=== PATIENT | male | born 1960 | race Two or more races ===

== ENCOUNTER 2017-01-08 12:04 | Inpatient (IN) | payer MEDICARE, MEDICAID ==
[~2017-01-08] VITALS: Ht 167.6 cm; Wt 73.0 kg
[~2017-01-08 12:04] MED LIST: BENA40TA2 PO; BLOO-668 IN; METO25TA6 PO; VALS40TA4 PO
--- NOTE | 2017-01-08 12:12 | NUR ---
PT BIB SELF AMBULATORY COMPLAINED NAUSEA / VOMITING / ABD PAIN SINCE YESTERDAY. PLACED PT ON MONITOR. VSS. AWAITING MD ORDER
--- NOTE | 2017-01-08 12:20 | NUR ---
AT BEDSIDE FOR EVAL
[2017-01-08] MEDS ORDERED: LIDOCAINE 2% JEL UROJET 10 ML MM ONE (12:30)
[2017-01-08] MEDS ORDERED: ONDANSETRON HCL/PF 4 MG/2 ML VIAL IVP ONE (12:30)
[2017-01-08] MEDS ORDERED: MAG HYDROX/AL HYDROX/SIMETH 30 ML UDC PO ONE (12:30)
--- NOTE | 2017-01-08 12:30 | NUR ---
VIKKI #22 IV ACCESS. BLOOD SAMPLE COLLECTED SENT TO LAB
[2017-01-08] MEDS ORDERED: ONDANSETRON HCL/PF 4 MG/2 ML VIAL ONE (12:51)
[2017-01-08] MEDS ORDERED: LIDOCAINE VISCOUS 2% UD 15 ML UDC ONE (12:51)
[2017-01-08] MEDS ORDERED: MAG HYDROX/AL HYDROX/SIMETH 30 ML UDC ONE (12:51)
[2017-01-08 12:52] LABS: BASOPHILS # (AUTO) 0.2 /CMM (0.0-0.2); BASOPHILS % (AUTO) 2.4 % (0.0-2.0); EOSINOPHILS # (AUTO) 0.1 /CMM (0.0-0.7); HEMATOCRIT 43 % (39-51); HEMOGLOBIN 14.6 g/dL (13.5-17.5); LYMPHOCYTES # (AUTO) 1.6 /CMM (0.8-4.8); LYMPHOCYTES % (AUTO) 16.9 % (20.0-44.0); MEAN CORPUSCULAR HEMOGLOBIN 30 PG (26.0-33.0); MEAN CORPUSCULAR HGB CONC 34 g/dl (31.0-36.0); MEAN CORPUSCULAR VOLUME 90 fL (80-96); MONOCYTES # (AUTO) 0.6 /CMM (0.1-1.30); NEUTROPHILS # (AUTO) 6.7 /CMM (1.8-8.9); NEUTROPHILS % (AUTO) 73.7 % (43.0-81.0); PLATELET COUNT (AUTO) 278 /CMM (150-450); RDW COEFFICIENT OF VARIATION 12.8 (11.5-15.0); RED BLOOD CELL COUNT(AUTO) 4.82 MIL/uL (4.5-6.0); WHITE BLOOD COUNT (AUTO) 9.2 K/uL (4.3-11.0)
[2017-01-08] MEDS ORDERED: LIDOCAINE VISCOUS 2% UD 15 ML UDC MM ONE (13:00)
[2017-01-08 13:02] LABS: CALCIUM, SERUM 8.8 mg/dL (8.5-10.1); CREATININE 1.2 mg/dL (0.6-1.3); POTASSIUM 4.7 mmol/L (3.5-5.1)
[2017-01-08 13:06] LABS: APPEARANCE,URINE Clear (CLEAR); BILIRUBIN,URINE Negative (NEGATIVE); BLOOD, URINE Negative Ery/uL (NEGATIVE); COLOR,URINE Yellow (YELLOW); KETONES,URINE Negative (NEGATIVE); LEUKOCYTE ESTERASE ,URINE Negative (NEGATIVE); NITRITE, URINE Negative (NEGATIVE); PROTEIN,URINE Negative (NEGATIVE); UGLUCOSE Negative (NEGATIVE); UROBILINOGEN,URINE 0.2 EU/dL (0.2)
[2017-01-08 13:07] LABS: BILIRUBIN,DIRECT 0.1 mg/dL (0.0-0.2); BILIRUBIN,TOTAL 0.4 mg/dL (0.2-1.0); TOTAL PROTEIN, SERUM 7.8 g/dL (6.4-8.2)
[2017-01-08] MEDS ORDERED: IV NS 0.9% 1,000 ML ONE (13:19)
[2017-01-08] MEDS ORDERED: IV SET PRIMARY PUMP SET 1 EA INFUS.SET MC ONE ×2 (13:19→16:31)
[2017-01-08] MEDS ORDERED: IV NS 0.9% 1,000 ML BAG IV ONE (13:30)
[2017-01-08] MEDS ORDERED: IV NS 0.9% 250 ML IV ONE (13:48)
[2017-01-08] MEDS ORDERED: CT SWABBABLE VALVE TRANS SET 1 EA INFUS.SET MC ONE (13:48)
[2017-01-08] MEDS ORDERED: IOHEXOL-300 100 ML VIAL IV ONE (13:48)
[2017-01-08] MEDS ORDERED: SITA50TA PO (13:54)
[2017-01-08] MEDS ORDERED: METF850T2 PO (13:54)
[2017-01-08] MEDS ORDERED: LOVA20TA2 PO (13:54)
[2017-01-08] MEDS ORDERED: SUCR1TAB PO (13:54)
[2017-01-08] MEDS ORDERED: METO50TA3 PO (13:54)
[2017-01-08] MEDS ORDERED: HYDR25TA4 PO (13:54)
--- NOTE | 2017-01-08 14:44 | NUR ---
PANEL ON-CALL PAGED
--- NOTE | 2017-01-08 14:54 | NUR ---
BED 117.B1
--- NOTE | 2017-01-08 15:29 | NUR ---
GAVE REPORT TO MARGUERITE MERAFOREST PATHOLOGIST ADMITTING DR MAIN. ROOM 117-1
[2017-01-08 16:00] VITALS: BP 155/94
[2017-01-08] MEDS ORDERED: Z GUARD REMEDY 2 OZ OINT TP PRN (16:00)
[2017-01-08] MEDS ORDERED: MAG HYDROX/AL HYDROX/SIMETH 30 ML UDC PO PRN (16:00)
[2017-01-08] MEDS ORDERED: MAGNESIUM HYDROXIDE 30 ML UDC PO PRN (16:00)
[2017-01-08] MEDS ORDERED: HYDROCODONE/APAP 5/325MG 1 EACH TABLET PO PRN (16:00)
[2017-01-08] MEDS ORDERED: ZOLPIDEM TARTRATE 5 MG TABLET PO PRN (16:00)
--- NOTE | 2017-01-08 16:00 | NUR ---
RN INITIAL NOTES RECEIVED REPORT FROM ER, RECEIVED PT IN BED, AWAKE, ABLE TO MAKE NEEDS KNOWN, UKRAINIAN SPEAKING, PT IS ON TELE MONITOR SHOWING SR @ 75BPM, NO C/O CHEST PAIN OR DISCOMFORT AT THIS TIME, PT IS ON RA, SATING WELL, NO S/S OF RESP. DISTRESS OR SOB NOTED AT THIS TIME, SKIN IS INTACT, NO PHOTOS REQUIRED, PT HAS L HAND # 22G, SL, LFA # 18G, SL, C/D/I/PATENT, FLUSHING WELL, NO S/S OF INFECTION/ INFILTRATION NOTED, ALL SAFETY MEASURES IN PLACE AT ALL TIMES, CALL LIGHT WITHIN EASY REACH, WILL MONITOR PT CLOSELY
[2017-01-08] MEDS: METOPROLOL TARTRATE 50 MG TABLET PO SCH (16:39)
[2017-01-08] MEDS: METFORMIN 850 MG TABLET PO SCH (16:39)
[2017-01-08] MEDS: SUCRALFATE 1 G TABLET PO SCH (16:39)
[2017-01-08] MEDS ORDERED: CEFTRIAXONE 1 G in IV D5W 50 ML IV SCH (17:00)
[2017-01-08] MEDS: ONDANSETRON HCL/PF 4 MG/2 ML VIAL IVP PRN ×2 (17:55→23:51)
[2017-01-08 18:31] LABS: OSMOLALITY,URINE 326 mOS/kg (340-1090)
[2017-01-08 18:38] LABS: URINE SODIUM, RANDOM 39 mmol/l (40-220)
--- NOTE | 2017-01-08 18:54 | NUR ---
RN CLOSING NOTES PT REMAINED STABLE DURING SHIFT, ALL MD ORDERS CARRIED OUT, ALL MEDICATIONS GIVEN, PT WAS KEPT CLEAN AND DRY, IV REMAINS INTACT, ALL SAFETY MEASURES IN PLACE AT ALL TIMES, CALL LIGHT WITHIN EASY REACH, WILL GIVE REPORT TO PM RN FOR ALEXIS
--- NOTE | 2017-01-08 19:30 | NUR ---
CORPORATE STRATEGIST INITIAL NOTE RECEIVED PT IN BED. A/O X4 HONG KONGER SPEAKING AND ABLE TO MAKE NEEDS KNOWN. ON ROOM AIR AND SATING WELL. TELE-SINUS RHYTHM 60'S. ON FLUID RESTRICTION 900ML. IV L HAND #22 AND LFA #18 BOTH CLEAN, DRY, INTACT, PATENT AND FLUSHING WELL. CALL LIGHT WITHIN EASY REACH AT ALL TIMES. WILL CONTINUE TO MONITOR.
[2017-01-08 20:00] VITALS: BP 144/80
[2017-01-08] MEDS ORDERED: ATORVASTATIN 10 MG TABLET PO SCH (22:00)
[2017-01-08] MEDS: ACETAMINOPHEN 325 MG TABLET PO PRN (22:10)
[2017-01-09] VITALS: BP 135/75
[2017-01-09 04:00] VITALS: BP 140/81
[2017-01-09] MEDS: ACETAMINOPHEN 325 MG TABLET PO PRN (04:12)
--- NOTE | 2017-01-09 05:43 | NUR ---
RN NOTES: PT WITH HX OF DM, AND MENTIONED TO PRIMARY RN THAT HIS SUGAR HAS NOT BEEN CHECKED YET. NO ORDERS FOR ACCUCHECKS NOTED YET. RELAYED TO [facility] TURN OPERATOR HAIR VAZQUEZ WITH ORDERS TO PUT PT ON MILD SLIDING SCALE ACHS. NOTED AND CARRIED OUT. PRIMARY RN AWARE.
[2017-01-09] MEDS ORDERED: INSULIN REGULAR, HUMAN 100 UNIT/ML 3 ML VIAL SQ PRN (06:00)
[2017-01-09] MEDS ORDERED: DEXTROSE 50%-WATER 50 ML DISP.SYRIN IV PRN (06:00)
[2017-01-09] MEDS: BLOOD SUGAR DIAGNOSTIC 1 EACH STRIP IN SCH ×2 (06:32→11:41)
[2017-01-09] MEDS: ONDANSETRON HCL/PF 4 MG/2 ML VIAL IVP PRN ×2 (06:32→11:35)
[2017-01-09 06:47] LABS: BASOPHILS % (AUTO) 0.3 % (0.0-2.0); EOSINOPHILS # (AUTO) 0.1 /CMM (0.0-0.7); EOSINOPHILS % (AUTO) 1.8 % (0.0-6.0); HEMATOCRIT 40 % (39-51); HEMOGLOBIN 13.9 g/dL (13.5-17.5); LYMPHOCYTES % (AUTO) 30.1 % (20.0-44.0); MEAN CORPUSCULAR HEMOGLOBIN 31 PG (26.0-33.0); MEAN CORPUSCULAR HGB CONC 35 g/dl (31.0-36.0); MEAN CORPUSCULAR VOLUME 89 fL (80-96); MONOCYTES # (AUTO) 0.6 /CMM (0.1-1.30); MONOCYTES % (AUTO) 9.1 % (2.0-12.0); NEUTROPHILS # (AUTO) 3.9 /CMM (1.8-8.9); NEUTROPHILS % (AUTO) 58.7 % (43.0-81.0); PLATELET COUNT (AUTO) 261 /CMM (150-450); RED BLOOD CELL COUNT(AUTO) 4.48 MIL/uL (4.5-6.0); WHITE BLOOD COUNT (AUTO) 6.6 K/uL (4.3-11.0)
--- NOTE | 2017-01-09 06:59 | NUR ---
RADIOACTIVE WASTE DISPOSAL DISPATCHER CLOSING NOTE PT REMAINED STABLE DURING SHIFT. C/O NAUSEA, MEDICATION GIVEN AND WELL TOLERATED. BLOOD SUGAR CHECKED 131MG/DL AND PT REFUSED INSULIN COVERAGE STATING 'I HAVE NAUSEA AND WHAT IF I CANT EAT BREAKFAST? MY SUGAR IS GOING TO DROP' Addendum: 01/09/17 at 0715 by SYDNI PHAM RN RISKS AND BENEFITS EXPLAINED X'3. PT STILL REFUSED. WILL ENDORSE TO NEXT SHIFT FOR ALEXIS.
[2017-01-09 07:04] LABS: CALCIUM, SERUM 8.6 mg/dL (8.5-10.1); CREATININE 1.2 mg/dL (0.6-1.3); MAGNESIUM 1.3 mg/dL (1.8-2.4); PHOSPHORUS 4.1 mg/dL (2.5-4.9); POTASSIUM 4.3 mmol/L (3.5-5.1)
--- NOTE | 2017-01-09 07:15 | NUR ---
RN INITIAL NOTE PT RECEIVED IN BED SLEEPING, NO S/S OF PAIN OR DISCOMFORT. NO S/S OF RESPIRATORY DISTRESS OR SOB. SATING WELL ON ROOM AIR. SINUS RHYTHM ON TELE MONITOR. SKIN IS WARM AND DRY TO TOUCH. LEFT HAND IV 22G, AND LFA IV 18G, FLUSHED AND PATENT. DRESSING C/D/I. SAFETY MEASURES IMPLEMENTED. BED IN LOCKED, LOW POSITION, TWO SIDE RAILS UP. CALL LIGHT AND BELONGINGS WITHIN REACH. WILL CONTINUE TO MONITOR.
[2017-01-09 08:00] VITALS: BP_SYST 127; BP_SYST 139; BP_DIAS 69; BP_DIAS 74
[2017-01-09 08:12] LABS: ANISOCYTOSIS 1+; PLATELET ESTIMATE DECREASED
[2017-01-09] MEDS: SUCRALFATE 1 G TABLET PO SCH ×2 (08:40→12:01)
[2017-01-09 08:41] VITALS: BP 139/74
[2017-01-09] MEDS: METOPROLOL TARTRATE 50 MG TABLET PO SCH (08:41)
[2017-01-09] MEDS: METFORMIN 850 MG TABLET PO SCH (08:41)
[2017-01-09] MEDS ORDERED: LINAGLIPTIN 5 MG TABLET PO SCH (09:00)
[2017-01-09] MEDS: Magnesium 1GM/D5W 100ML PREMIX 100 ML IV SCH ×2 (11:49→12:52)
--- NOTE | 2017-01-09 14:45 | NUR ---
RN CLOSING NOTE PT DISCHARGED HOME. REMOVED TWO IV'S. PICKED UP BY [facility].
== END 2017-01-09 14:22 | disposition home or self-care (01) | DRG 690 ==
LOC: EDUNIT# 12:04 → ER 12:06 → TELE1 15:18 → MEDSG1 01-09 10:55
PROVIDERS: ADMIT Family Medicine; ATTEND Family Medicine
DX: N30.90 Cystitis, unspecified without hematuria (principal); E87.1 Hypo-osmolality and hyponatremia; I12.9 Hypertensive chronic kidney disease with stage 1 through stage 4 chronic kidney disease, or unspecified chronic kidney disease; N18.9 Chronic kidney disease, unspecified; E11.22 Type 2 diabetes mellitus with diabetic chronic kidney disease; E78.5 Hyperlipidemia, unspecified; Z79.84 Long term (current) use of oral hypoglycemic drugs; Z83.3 Family history of diabetes mellitus; T50.2X5A Adverse effect of carbonic-anhydrase inhibitors, benzothiadiazides and other diuretics, initial encounter; Y92.009 Unspecified place in unspecified non-institutional (private) residence as the place of occurrence of the external cause; K29.70 Gastritis, unspecified, without bleeding; E86.9 Volume depletion, unspecified
CPT/HCPCS: 36415; 80048-TC; 80061-TC; 80076-TC; 81000-TC; 82962-TC; 83690-TC; 83735-TC; 83935-TC; 84100-TC; 84300-TC; 85025-TC; 87081-TC; A4606; J0696; J1815; J2405; J3475; J7030; J7050; J7060; Q9967; Z7610

== ENCOUNTER 2017-06-04 18:22 | Emergency (ER) | payer MEDICARE, MEDICAID ==
[~2017-06-04] VITALS: Ht 167.6 cm; Wt 72.6 kg
[~2017-06-04 18:22] MED LIST changes: -BENA40TA2 PO; -BLOO-668 IN; +HYDR25TA4 PO; +LEVO500T15 PO; +LOVA20TA2 PO; +METF850T2 PO; -METO25TA6 PO; +METO50TA3 PO; +SITA50TA PO; +SUCR1TAB PO; -VALS40TA4 PO
[2017-06-04] MEDS ORDERED: ONDANSETRON HCL/PF 4 MG/2 ML VIAL ONE ×2 (18:49→20:01)
[2017-06-04] MEDS ORDERED: ONDANSETRON HCL/PF - ER 4 MG/2 ML VIAL IV ONE ×2 (19:00→20:00)
[2017-06-04] MEDS ORDERED: IV NS 0.9% 500 ML BAG IV ONE (19:00)
--- NOTE | 2017-06-04 19:00 | NUR ---
PT CAME IN FOR NAUSEA AND VOMITING X 3 DAYS ; LEFT FLANK PAIN. SEEN BY SYSTEMS ADMIN FOR EVAL. VSS. SAFETY AND COMFORT MEASURES PROVIDED. WILL MONITOR.
[2017-06-04 19:03] LABS: BASOPHILS # (AUTO) 0.1 /CMM (0.0-0.2); BASOPHILS % (AUTO) 0.8 % (0.0-2.0); EOSINOPHILS # (AUTO) 0.2 /CMM (0.0-0.7); EOSINOPHILS % (AUTO) 2.5 % (0.0-6.0); HEMATOCRIT 44 % (39-51); HEMOGLOBIN 15.2 g/dL (13.5-17.5); LYMPHOCYTES # (AUTO) 2.4 /CMM (0.8-4.8); LYMPHOCYTES % (AUTO) 29.2 % (20.0-44.0); MEAN CORPUSCULAR HEMOGLOBIN 32 PG (26.0-33.0); MEAN CORPUSCULAR HGB CONC 34 g/dl (31.0-36.0); MEAN CORPUSCULAR VOLUME 93 fL (80-96); MONOCYTES # (AUTO) 0.6 /CMM (0.1-1.30); MONOCYTES % (AUTO) 7.3 % (2.0-12.0); NEUTROPHILS # (AUTO) 4.9 /CMM (1.8-8.9); NEUTROPHILS % (AUTO) 60.2 % (43.0-81.0); PLATELET COUNT (AUTO) 268 /CMM (150-450); RDW COEFFICIENT OF VARIATION 11.9 (11.5-15.0); RED BLOOD CELL COUNT(AUTO) 4.78 MIL/uL (4.5-6.0); WHITE BLOOD COUNT (AUTO) 8.3 K/uL (4.3-11.0)
--- NOTE | 2017-06-04 19:10 | NUR ---
LUMBER CHAIN OFFBEARER AT BEDSIDE
[2017-06-04 19:18] LABS: INR 0.93 (0.87-1.13); PROTHROMBIN TIME 9.7 SECS (9.5-12.7)
[2017-06-04 19:19] LABS: ALANINE AMINOTRANSFERASE 21 U/L (12-78); ALKALINE PHOSPHATASE 74 U/L (46-116); ASPARTATE AMINOTRANSFERASE 20 U/L (15-37); BILIRUBIN,DIRECT 0.1 mg/dL (0.0-0.2); BILIRUBIN,TOTAL 0.3 mg/dL (0.2-1.0); CALCIUM, SERUM 8.8 mg/dL (8.5-10.1); CARBON DIOXIDE 26 mmol/L (21-32); CHLORIDE 99 mmol/L (98-107); CREATININE 1.1 mg/dL (0.6-1.3); GLUCOSE 148 mg/dL (74-106); POTASSIUM 3.8 mmol/L (3.5-5.1); SODIUM SERUM 136 mmol/L (136-145); TOTAL PROTEIN, SERUM 7.9 g/dL (6.4-8.2); UREA NITROGEN, BLOOD 16 mg/dL (7-18)
[2017-06-04 19:21] LABS: TROPONIN I < 0.017 ng/mL (0.00-0.056)
[2017-06-04 20:50] LABS: APPEARANCE,URINE Clear (CLEAR); BILIRUBIN,URINE Negative (NEGATIVE); BLOOD, URINE Negative Ery/uL (NEGATIVE); COLOR,URINE Yellow (YELLOW); KETONES,URINE Negative (NEGATIVE); LEUKOCYTE ESTERASE ,URINE Negative (NEGATIVE); NITRITE, URINE Negative (NEGATIVE); PH,URINE 6.5 (5.0-8.0); PROTEIN,URINE Negative (NEGATIVE); UGLUCOSE Negative (NEGATIVE); UROBILINOGEN,URINE 0.2 EU/dL (0.2)
[2017-06-04 21:09] VITALS: BP 120/80
--- NOTE | 2017-06-04 21:09 | NUR ---
Patient discharged to home in stable condition. Written and verbal after care instructions given. Patient verbalizes understanding of instruction.
== END 2017-06-04 21:10 | disposition home or self-care (01) ==
LOC: ER 18:23
DX: R11.2 Nausea with vomiting, unspecified (principal); E11.9 Type 2 diabetes mellitus without complications; I10 Essential (primary) hypertension; N28.9 Disorder of kidney and ureter, unspecified; R07.89 Other chest pain; E78.00 Pure hypercholesterolemia, unspecified
CPT/HCPCS: 36415; 71010; 80048; 80076; 81001; 84484; 85025; 85730; 93005; 96361; 96374; 96376; 99285; A4606; J2405 ×4; J7040; 81000-TC; Z7610

== ENCOUNTER 2017-10-23 22:40 | Inpatient (IN) | payer MEDICARE, MEDICAID ==
[~2017-10-23] VITALS: Ht 170.2 cm; Wt 72.6 kg
[~2017-10-23 22:40] MED LIST changes: -LEVO500T15 PO; +LEVO500T75 PO; +METO50TA16 PO; -METO50TA3 PO
--- NOTE | 2017-10-23 22:55 | NUR ---
MD LORRI CEVALLOS EVAL.
--- NOTE | 2017-10-23 22:55 | NUR ---
BB SELF FROM HOME C/O "BEEN VOMITING SINCE THIS AFTERNOON AND HAVE BURNING EPIGASTRIC PAIN 5". PT ADMITS TO DRINKING 6 BOTTLES OF BEER X2 DAYS AGO AND "A FEW DRINKS" YESTERDAY. PT IS AAOX4. PAIN IS NON RADIATING. PT ACTIVELY VOMITTING IN ROOM. VOMIT IS CLEAR IN COLOR. RESP EVEN AND UNLABORED. NO S/S OF ACUTE DISTRESS NOTED. PT AMBULATED TO ER BED 3 WITH STEADY GAIT. SKIN WARM AND WNL. AWAITING MD TY.
[2017-10-23] MEDS ORDERED: MAG HYDROX/AL HYDROX/SIMETH 30 ML UDC PO ONE (23:00)
[2017-10-23] MEDS ORDERED: IV NS 0.9% 1,000 ML BAG IV ONE (23:00)
[2017-10-23] MEDS ORDERED: ONDANSETRON HCL/PF 4 MG/2 ML VIAL IVP ONE (23:00)
[2017-10-23] MEDS ORDERED: FAMOTIDINE/PF INJ 20 MG/2 ML VIAL IV ONE ×2 (23:00→23:12)
[2017-10-23] MEDS ORDERED: MAG HYDROX/AL HYDROX/SIMETH 30 ML UDC ONE (23:11)
[2017-10-23] MEDS ORDERED: ONDANSETRON HCL/PF 4 MG/2 ML VIAL ONE (23:12)
--- NOTE | 2017-10-23 23:15 | NUR ---
PHLEBOTOMY BEDSIDE FOR BLOOD DRAW.
[2017-10-23 23:49] LABS: BASOPHILS % (AUTO) 0.2 % (0.0-2.0); EOSINOPHILS % (AUTO) 0.4 % (0.0-6.0); HEMATOCRIT 41 % (39-51); HEMOGLOBIN 14.7 g/dL (13.5-17.5); LYMPHOCYTES % (AUTO) 9.5 % (20.0-44.0); MEAN CORPUSCULAR HEMOGLOBIN 34 PG (26.0-33.0); MEAN CORPUSCULAR HGB CONC 36 g/dl (31.0-36.0); MEAN CORPUSCULAR VOLUME 94 fL (80-96); MONOCYTES # (AUTO) 0.5 /CMM (0.1-1.30); MONOCYTES % (AUTO) 4.3 % (2.0-12.0); NEUTROPHILS # (AUTO) 9.3 /CMM (1.8-8.9); NEUTROPHILS % (AUTO) 85.6 % (43.0-81.0); PLATELET COUNT (AUTO) 234 /CMM (150-450); RDW COEFFICIENT OF VARIATION 12.8 (11.5-15.0); RED BLOOD CELL COUNT(AUTO) 4.36 MIL/uL (4.5-6.0); WHITE BLOOD COUNT (AUTO) 10.9 K/uL (4.3-11.0)
[2017-10-24] LABS: CALCIUM, SERUM 9.2 mg/dL (8.5-10.1); CARBON DIOXIDE 25 mmol/L (21-32); CHLORIDE 97 mmol/L (98-107); CREATININE 1.1 mg/dL (0.6-1.3); GLUCOSE 254 mg/dL (74-106); POTASSIUM 3.8 mmol/L (3.5-5.1); SODIUM SERUM 136 mmol/L (136-145); UREA NITROGEN, BLOOD 9 mg/dL (7-18)
[2017-10-24 00:05] LABS: ALANINE AMINOTRANSFERASE 29 U/L (12-78); ALBUMIN 4.2 g/dL (3.4-5.0); ALKALINE PHOSPHATASE 72 U/L (46-116); ASPARTATE AMINOTRANSFERASE 13 U/L (15-37); BILIRUBIN,DIRECT 0.1 mg/dL (0.0-0.2); BILIRUBIN,TOTAL 0.4 mg/dL (0.2-1.0); LIPASE 1211 U/L (73-393); TOTAL PROTEIN, SERUM 8.3 g/dL (6.4-8.2)
[2017-10-24 00:08] LABS: TROPONIN I < 0.017 ng/mL (0.00-0.056)
--- NOTE | 2017-10-24 00:15 | NUR ---
Patient is resting comfortably in bed with eyes closed. Easily aroused. VSS
--- NOTE | 2017-10-24 00:34 | NUR ---
PAGED DR PECK PHYSICIAN AIDE PANEL
[2017-10-24] MEDS ORDERED: MAGNESIUM HYDROXIDE 30 ML UDC PO PRN (01:00)
[2017-10-24] MEDS ORDERED: MAG HYDROX/AL HYDROX/SIMETH 30 ML UDC PO PRN (01:00)
[2017-10-24] MEDS ORDERED: Z GUARD REMEDY 2 OZ OINT TP PRN (01:00)
[2017-10-24] MEDS ORDERED: ZOLPIDEM TARTRATE 5 MG TABLET PO PRN (01:00)
[2017-10-24] MEDS ORDERED: MORPHINE SULFATE INJ 2 MG/ML DISP.SYRIN IV PRN (01:00)
--- NOTE | 2017-10-24 01:23 | NUR ---
GAVE REPORT TO ISHA MEDINA FOR ALEXIS. EMT BEDSIDE TO TRANSPORT PT. VSS AND NO S/S OF ACUTE DISTRESS NOTED
[2017-10-24 02:00] VITALS: BP 136/81
[2017-10-24] MEDS ORDERED: ACETAMINOPHEN 325 MG TABLET ONE (02:05)
[2017-10-24] MEDS ORDERED: ONDANSETRON HCL/PF 4 MG/2 ML VIAL ONE (03:04)
[2017-10-24] MEDS: IV NS 0.9% 1,000 ML IV PRN ×3 (03:23→17:23)
[2017-10-24] MEDS: ONDANSETRON HCL/PF 4 MG/2 ML VIAL IVP PRN ×4 (03:25→23:46)
[2017-10-24] MEDS: MORPHINE SULFATE INJ 4 MG/ML DISP.SYRIN ONE ×2 (03:25→03:29)
--- NOTE | 2017-10-24 06:55 | NUR ---
RN NOTES Routine admission done. Skin assessment done, no skin breakdown noted. All needs attended. Will continue to monitor.
--- NOTE | 2017-10-24 06:55 | NUR ---
CONFERENCE SERVICES DIRECTOR NOTES 01:30 Admitted patient to the unit in no apparent distress. No respiratory distress noted. Skin warm and dry to touch. Patient is alert and oriented x4, Danish speaking. Translation service line used during admission interview. Patient c/o 5/10 abdominAL pain, pain medication given as ordered.C/o nausea, Zofran given as ordered. Patient kept NPO. Explained patient treatment plan, verbalized understanding.
[2017-10-24 08:00] VITALS: BP 136/73
--- NOTE | 2017-10-24 08:00 | NUR ---
RN NOTES RECEIVED PATIENT IN THE BED LYING. PATIENT A/O X3, TURKMEN SPEAKER, IV LINE ON LEFT FOREARM INFUSING NS AT 150 ML/HR, PATIENT C/O NAUSEA, HOB KEEP ELEVATED, V/S TAKEN STABLE, PATIENT USING URINAL, NEEDS ATTENDED AND ANTICIPATED, PATIENT HAS NO C/O PERSPIRATORY DISTRESS. CALL LIGHT WITHIN TO REACH, CONTINUED MONITORING.
[2017-10-24] MEDS ORDERED: METF500T4 PO (08:56)
[2017-10-24 09:00] VITALS: BP 136/73
--- NOTE | 2017-10-24 10:05 | NUR ---
RN NOTES ADMINISTERED ZOFRAN 4 MG/ML IV PUSH FOR NAUSEA AND VOMITING X2, CONTINUED MONITORING.
[2017-10-24] MEDS ORDERED: MORPHINE SULFATE INJ 4 MG/ML DISP.SYRIN IV PRN (10:30)
--- NOTE | 2017-10-24 10:34 | NUR ---
RN NOTES ADMINISTERED MORPHINE SULFATE 2 MF/ML IV PUSH PER PATIENT REQUEST 06/03 GENERALIZED PAIN, V/S TAKEN HC=128/73, P-88, CALL LIGHT WITHIN TO REACH, SAFETY PRECAUTION MAINTAINED ALL THE TIME.
[2017-10-24] MEDS: HYDROMORPHONE INJ 0.5 MG/0.5 ML SYRINGE IV PRN ×2 (14:52→22:51)
--- NOTE | 2017-10-24 14:52 | NUR ---
RN NOTES ADMINISTERED DILAUDID 0.25 MG/ML IV PUSH PER PATIENT REQUEST GENERALIZED PAIN 04/02, CALL LIGHT WITHIN TO REACH, INFUSING NS AT 150ML/HR, CALL LIGHT WITHIN TO REACH, SAFETY PRECAUTION MAINTAINED ALL THE TIME.
[2017-10-24 16:00] VITALS: BP 159/75
--- NOTE | 2017-10-24 17:23 | NUR ---
RN NOTES ADMINISTERED ZOFRAN 4 MG /ML IV PUSH FOR NAUSEA AND VOMITING, INFUSING NS AT 150 MG/ML PER HR, CALL LIGHT WITHIN TO REACH, CONTINUED MONITORING.
[2017-10-24] MEDS: ACETAMINOPHEN 325 MG TABLET PO PRN (17:42)
--- NOTE | 2017-10-24 17:43 | NUR ---
RN NOTES ADMINISTERED TYLENOL 650 MG PO PRN FOR HEADACHE, CONTINUED MONITORING.
[2017-10-24] MEDS ORDERED: DEXTROSE 50%-WATER 50 ML DISP.SYRIN IV PRN (18:30)
[2017-10-24] MEDS ORDERED: hydrALAZINE HCL 25 MG TABLET PO PRN (19:00)
--- NOTE | 2017-10-24 19:00 | NUR ---
RN NOTES BS-212 MG/DL, MEDICATION WERE ADMINISTERED FOR HEADACHE EFFECTIVE AND NAUSEA, RESTING IN THE BED, CALL LIGHT WITHIN TO REACH, SAFETY PRECAUTION MAINTAINED ALL THE TIME. ENDORSED ONCOMING NURSE FOR ALEXIS.
[2017-10-24] MEDS: BLOOD SUGAR DIAGNOSTIC 1 EACH STRIP IN SCH ×2 (19:37→22:15)
--- NOTE | 2017-10-24 20:00 | NUR ---
MS AIRPORT SHUTTLE DRIVER INITIAL NOTES RECEIVED PT IN BED RESTING WITH EYES CLOSES BY AROUSE TO TOUCH. NO SIGNS OF ANY DISCOMFORT OR ANY N/V NOTED. STILL ON IVF OF NS AT 150ML/HR INFUSING ON HIS RIGHT FOREARM PATENT AND INTACT. SKIN WARM AND DRY TO TOUCH. CROATIAN SPEAKING ONLY . KEPT HIM WARM AND COMFORTABLE AT ALL TIMES PLACE CALL LIGHT AT REACH. WILL CONTINUE TO MONITOR.
[2017-10-24 20:07] VITALS: BP 122/72
[2017-10-24] MEDS: INSULIN REGULAR, HUMAN 100 UNIT/ML 3 ML VIAL SQ PRN (22:18)
--- NOTE | 2017-10-24 22:37 | NUR ---
serging machine operator automatic/notes /clarification ordered spoke to dr Chen regarding the accu-check coverage , he ordered to just do the accu check but no coverages and monitoring the pt. Blood sugar 202, no signs of hyper glycemia noted.
--- NOTE | 2017-10-24 22:55 | NUR ---
MS SHIPPING/RECEIVING MANAGER NOTES/PAIN GT C/O ABDOMINAL PAIN , DILAUDID 0.25 IVP ADMINISTERED BY ANOTHER NURSE. PT AWARE OF POSSIBLE SIDE EFFECT. SAFETY PRECAUTION IMPLEMENTED AND OBSERVED. PLACE CALL LIGHT AT REACH.
--- NOTE | 2017-10-25 | NUR ---
PHYSICAL MEDICINE TEACHER/NOTES RE-ASSESS PT FOR HIS PAIN, SUBSIDE BUT HE FEEL NAUSEATED, ZOFRAN GIVEN DELORES IVP ORDERED. WILL CONTINUE MONITORING. PT STILL ON IVF OF NS AT 150ML/HR. PLACE CALL LIGHT AT REACH.
[2017-10-25] MEDS: IV NS 0.9% 1,000 ML IV PRN ×3 (00:22→20:11)
[2017-10-25] MEDS: BLOOD SUGAR DIAGNOSTIC 1 EACH STRIP IN SCH ×6 (02:15→21:59)
--- NOTE | 2017-10-25 02:18 | NUR ---
MS DIRECTOR OF OFFICIATING NOTES BLOOD SUGAR CHECKED DONE 170 , NO INSULIN COVERAGES AT THIS TIME ORDERED. NO SIGNS OF ANY HYPO/HYPER GLYCEMIA NOTED. KEPT HIM WARM AND COMFORTABLE AT ALL TIMES. IVF INFUSING WELL.
[2017-10-25] MEDS: HYDROMORPHONE INJ 0.5 MG/0.5 ML SYRINGE IV PRN ×2 (05:29→19:10)
--- NOTE | 2017-10-25 05:34 | NUR ---
ms/rn notes pain reported at 7/10 in abdomen, iv dilaudid .25ml given, monitoring for effectiveness.
[2017-10-25] MEDS: ONDANSETRON HCL/PF 4 MG/2 ML VIAL IVP PRN ×3 (05:56→19:10)
--- NOTE | 2017-10-25 05:56 | NUR ---
ms/rn notes reported nausea, administer iv zofran for relief.
--- NOTE | 2017-10-25 07:05 | NUR ---
MS TELLER VAULT CLOSING NOTES PT RESTING NOW AFTER PAIN MEDICATION GIVEN AND ZOFRAN WELL. STILL ON IVF NS AT 150 ML/HR STILL INFUSING , NO REDNESS NOTED. SLEPT WELL AND STABLE DELORES THE NIGHT. ALL DUE MEDS GIVEN AND ALL NEEDS MET. STILL NPO ORDERED. ON INSULIN COVERAGE FOR HIS BLOOD SUGAR CHECK. DONE 189 NO INSULIN COVERAGE ORDERED. NO SIGNS OF HYPO/HYPER GLYCEMIA NOTED. KEPT HIM WARM AND COMFORTABLE AT ALL TIMES. PLACE CALL LIGHT AT REACH. ENDORSE TO AM NURSE FOR CONTINUITY OF CARE.
--- NOTE | 2017-10-25 07:30 | NUR ---
MS RN OPENING NOTES RECEIVED PATIENT IN BED HOB ELEVATED, ALERT ORIENTED X4. NO ACUTE DISTRESS NOTED. NO SOB NOTED. BREATHING UNLABORED. DENIED ANY PAIN. IV ACCESS INTACT AND PATENT. NO REDNESS OR SWELLING NOTED. SAFETY MEASURES IN PLACE. CALL LIGHT PLACED WITHIN REACH. WILL CONTINUE TO MONITOR ACCORDINGLY.
[2017-10-25 07:55] LABS: BASOPHILS % (AUTO) 0.4 % (0.0-2.0); EOSINOPHILS % (AUTO) 0.3 % (0.0-6.0); HEMATOCRIT 43 % (39-51); HEMOGLOBIN 15.2 g/dL (13.5-17.5); LYMPHOCYTES # (AUTO) 1.6 /CMM (0.8-4.8); LYMPHOCYTES % (AUTO) 21.8 % (20.0-44.0); MEAN CORPUSCULAR HEMOGLOBIN 34 PG (26.0-33.0); MEAN CORPUSCULAR HGB CONC 35 g/dl (31.0-36.0); MEAN CORPUSCULAR VOLUME 95 fL (80-96); MONOCYTES # (AUTO) 0.4 /CMM (0.1-1.30); MONOCYTES % (AUTO) 6.1 % (2.0-12.0); NEUTROPHILS # (AUTO) 5.1 /CMM (1.8-8.9); NEUTROPHILS % (AUTO) 71.4 % (43.0-81.0); PLATELET COUNT (AUTO) 233 /CMM (150-450); RDW COEFFICIENT OF VARIATION 13.3 (11.5-15.0); RED BLOOD CELL COUNT(AUTO) 4.53 MIL/uL (4.5-6.0); WHITE BLOOD COUNT (AUTO) 7.2 K/uL (4.3-11.0)
[2017-10-25 08:00] VITALS: BP 136/72
[2017-10-25 09:02] LABS: BILIRUBIN,TOTAL 0.5 mg/dL (0.2-1.0); CALCIUM, SERUM 8.8 mg/dL (8.5-10.1); MAGNESIUM 1.6 mg/dL (1.8-2.4); PHOSPHORUS 2.7 mg/dL (2.5-4.9); POTASSIUM 3.5 mmol/L (3.5-5.1); TOTAL PROTEIN, SERUM 8.3 g/dL (6.4-8.2)
[2017-10-25] MEDS: SUCRALFATE 1 G TABLET PO SCH ×2 (10:20→19:09)
[2017-10-25] MEDS: HYDROCHLOROTHIAZIDE 25 MG TABLET PO SCH (10:21)
[2017-10-25] MEDS: METOPROLOL TARTRATE 50 MG TABLET PO SCH ×2 (10:22→19:10)
[2017-10-25] MEDS: Magnesium 1GM/D5W 100ML PREMIX 100 ML IV SCH ×2 (10:26→12:10)
[2017-10-25] MEDS: INSULIN REGULAR, HUMAN 100 UNIT/ML 3 ML VIAL SQ PRN ×2 (13:21→22:02)
[2017-10-25] MEDS: ACETAMINOPHEN 325 MG TABLET PO PRN (13:21)
--- NOTE | 2017-10-25 13:21 | NUR ---
RN NOTES ADMINISTERED TYLENOL 650 MG PO PRN FOR HEADACHE, BS-300 MG/DL COVERAGE GIVEN, INFUSING MG 100ML/HR INTACT, CALL LIGHT WITHIN TO REACH, SAFETY PRECAUTION MAINTAINED ALL THE TIME.
[2017-10-25 16:00] VITALS: BP 133/73
--- NOTE | 2017-10-25 19:10 | NUR ---
rn notes administered Zofran 4 mg /ml iv push for nausea, and Dilaudid 0.25 mg/ml iv push per patient request, v/s taken bp- 133//73, p-71, also administered scheduled medication, patient using bathroom, no acute respiratory distress, needs attended a and anticipated, call light within to reach, safety precaution maintained all the time. endorsed oncoming nurse for philip.
--- NOTE | 2017-10-25 19:35 | NUR ---
MS RN OPENING NOTES RECEIVED PATIENT REGTING, AWAKE IN BED. HOB ELEVATED. A & O X 4. NO ACUTE DISTRESS NOTED. NO C/O ABD PAIN OR SOB NOTED. BREATHING UNLABORED, @ RA. DENIED N/V @ THIS TIME. IV ACCESS TO LAC INTACT AND PATENT, RUNNING WITH NS @ 150 ML/HR. NO REDNESS OR SWELLING NOTED. SAFETY MEASURES IN PLACE. BED IN LOW LOCKED POSITION. CALL LIGHT PLACED WITHIN REACH. WILL CONTINUE TO MONITOR FOR ALEXIS.
[2017-10-25 20:00] VITALS: BP 155/81
[2017-10-26] MEDS: BLOOD SUGAR DIAGNOSTIC 1 EACH STRIP IN SCH ×5 (01:33→16:53)
[2017-10-26] MEDS: INSULIN REGULAR, HUMAN 100 UNIT/ML 3 ML VIAL SQ PRN ×5 (01:33→17:31)
--- NOTE | 2017-10-26 01:33 | NUR ---
REFUSED INSULIN PER SLIDING SCALE BS WAS CHECKED, 176 MG/DL. PT REFUSED TO TAKE INSULIN PER SLIDING SCALE, EXPLAINED THE RISKS & BENEFITS OF GETTING INSULIN BUT PT STILL CONTINUED REFUSING. WILL RECHECK THE BS ORDERED. PT IS ON CLEAR LIQ DIET & IV FLUIDS. NO N/V NOTED @ THIS TIME. WILL CONTINUE TO MONITOR.
[2017-10-26] MEDS: IV NS 0.9% 1,000 ML IV PRN ×2 (03:34→11:39)
--- NOTE | 2017-10-26 06:42 | NUR ---
MS RN CLOSING NOTES PATIENT SLEPT INTERMITTENTLY @ NIGHT. HOB ELEVATED. A & O X 4. NO ACUTE DISTRESS NOTED. NO C/O ABD PAIN OR SOB NOTED. BREATHING UNLABORED, @ RA. HAD EPISODE OF NAUSEA BUT SUBSIDED AFTER FEW MINUTES. NO ANTIEMETIC NEEDED. ON CLEAR LIQ DIET. IV ACCESS TO LAC INTACT AND PATENT, RUNNING WITH NS @ 150 ML/HR. NO REDNESS OR SWELLING NOTED. SAFETY MEASURES IN PLACE. BED IN LOW LOCKED POSITION. CALL LIGHT PLACED WITHIN REACH. WILL ENDORSE TO AM RN FOR ALEXIS..
--- NOTE | 2017-10-26 07:00 | NUR ---
RN OPENING NOTES RECEIVED PATIENT IN BED ALERT ORIENTED X4. HOB ELEVATED.NO ACUTE DISTRESS NOTED. BREATHING UNLABORED. IV ACCESS PATENT AND INTACT, NO REDNESS OR SWELLING NOTED. SAFETY MEASURES IN PLACE. CALL LIGHT WITHIN REACH. WILL CONTINUE TO MONITOR ACCORDINGLY.
[2017-10-26 07:52] LABS: BASOPHILS % (AUTO) 0.4 % (0.0-2.0); EOSINOPHILS # (AUTO) 0.1 /CMM (0.0-0.7); EOSINOPHILS % (AUTO) 1.1 % (0.0-6.0); HEMATOCRIT 42 % (39-51); LYMPHOCYTES # (AUTO) 1.8 /CMM (0.8-4.8); LYMPHOCYTES % (AUTO) 26.6 % (20.0-44.0); MEAN CORPUSCULAR HEMOGLOBIN 34 PG (26.0-33.0); MEAN CORPUSCULAR HGB CONC 36 g/dl (31.0-36.0); MEAN CORPUSCULAR VOLUME 94 fL (80-96); MONOCYTES # (AUTO) 0.5 /CMM (0.1-1.30); MONOCYTES % (AUTO) 7.6 % (2.0-12.0); NEUTROPHILS # (AUTO) 4.4 /CMM (1.8-8.9); NEUTROPHILS % (AUTO) 64.3 % (43.0-81.0); PLATELET COUNT (AUTO) 236 /CMM (150-450); RDW COEFFICIENT OF VARIATION 12.6 (11.5-15.0); RED BLOOD CELL COUNT(AUTO) 4.44 MIL/uL (4.5-6.0); WHITE BLOOD COUNT (AUTO) 6.9 K/uL (4.3-11.0)
[2017-10-26 08:00] VITALS: BP 141/80
[2017-10-26 08:18] LABS: CALCIUM, SERUM 8.6 mg/dL (8.5-10.1); CREATININE 0.8 mg/dL (0.6-1.3); MAGNESIUM 1.6 mg/dL (1.8-2.4); PHOSPHORUS 3.2 mg/dL (2.5-4.9); POTASSIUM 3.2 mmol/L (3.5-5.1)
[2017-10-26] MEDS: SUCRALFATE 1 G TABLET PO SCH ×2 (09:29→16:54)
[2017-10-26] MEDS: METOPROLOL TARTRATE 50 MG TABLET PO SCH ×2 (09:29→16:55)
[2017-10-26] MEDS: HYDROCHLOROTHIAZIDE 25 MG TABLET PO SCH (09:29)
[2017-10-26] MEDS: Magnesium 1GM/D5W 100ML PREMIX 100 ML IV SCH ×3 (10:49→13:22)
[2017-10-26] MEDS ORDERED: POTASSIUM CHLORIDE 20 MEQ TAB.PRT.SR PO ONE (11:00)
--- NOTE | 2017-10-26 11:00 | NUR ---
MS RN NOTES SEEN BY DR KRAMER WITH NEW ORDERS MADE. NOTED AND CARRIED OUT.
--- NOTE | 2017-10-26 13:50 | NUR ---
MS RN NOTES SEEN BY DR MONIQUE FOR PAIN MANAGEMENT. INSTRUCTIONS GIVEN TO THE PATIENT TO MAKE APPOINTMENT IF PATIENT STILL HAVING PROBLEMS WITH PAIN. DOCTORS PHONE NUMBER AND ADDRESS GIVEN TO THE PATIENT.
[2017-10-26 16:00] VITALS: BP 151/89
[2017-10-26 16:55] VITALS: BP 151/89
--- NOTE | 2017-10-26 18:10 | NUR ---
MS FURNITURE MECHANIC NOTES PATIENT DISCHARGED WITH STABLE VITAL SIGNS. NO ACUTE DISTRESS NOTED. BREATHING UNLABORED. DENIED ANY PAIN. DISCHARGE INSTRUCTIONS GIVEN TO THE PATIENT, VERBALIZED UNDERSTANDING. IV ACCESS REMOVED NO S/SX OF BLEEDING NOTED. ALL BELONGINGS ACCOUNTED FOR. WHEELED TO THE LOBBY ASSISTED BY RN AND DELTA SYSTEM FREIGHT CAR CLEANER TO A CAR.
== END 2017-10-26 18:10 | disposition home or self-care (01) | DRG 439 ==
LOC: ER 22:43 → MED 10-24 01:17
PROVIDERS: ADMIT Internal Medicine; ATTEND Internal Medicine
DX: K85.20 Alcohol induced acute pancreatitis without necrosis or infection (principal); E44.0 Moderate protein-calorie malnutrition; E11.22 Type 2 diabetes mellitus with diabetic chronic kidney disease; E87.8 Other disorders of electrolyte and fluid balance, not elsewhere classified; E11.9 Type 2 diabetes mellitus without complications; I12.9 Hypertensive chronic kidney disease with stage 1 through stage 4 chronic kidney disease, or unspecified chronic kidney disease; N18.9 Chronic kidney disease, unspecified; F10.20 Alcohol dependence, uncomplicated; E78.5 Hyperlipidemia, unspecified; F17.200 Nicotine dependence, unspecified, uncomplicated; Z83.3 Family history of diabetes mellitus; Z82.49 Family history of ischemic heart disease and other diseases of the circulatory system; Z79.899 Other long term (current) drug therapy; K40.90 Unilateral inguinal hernia, without obstruction or gangrene, not specified as recurrent; K21.9 Gastro-esophageal reflux disease without esophagitis
CPT/HCPCS: 36415; 80048-TC; 80053-TC; 80061-TC; 80076-TC; 82962-TC; 83690-TC; 83735-TC; 84100-TC; 84484-TC; 85025-TC; 87081-TC; A4606; J1815; J2270; J2405; J3475; J3490; J7030; Z7610

== ENCOUNTER 2018-04-21 15:06 | Emergency (ER) | payer OTHER, MEDICAID ==
[~2018-04-21] VITALS: Ht 165.1 cm; Wt 72.6 kg
[~2018-04-21 15:06] MED LIST changes: -LEVO500T75 PO; +METF500T6 PO; -METF850T2 PO; -SITA50TA PO
[2018-04-21] MEDS ORDERED: ONDANSETRON HCL/PF 4 MG/2 ML VIAL IVP ONE (15:30)
[2018-04-21] MEDS ORDERED: IV NS 0.9% 1,000 ML BAG IV ONE (15:30)
--- NOTE | 2018-04-21 15:35 | NUR ---
BIB SELF, C/O NAUSEA, VOMITING, AND DIFFUSED ABDOMINAL PAIN X 1 WEEK. + ETOH PER PT. VSS. NAD NOTED @ THIS TIME.
[2018-04-21] MEDS ORDERED: ONDANSETRON HCL/PF 4 MG/2 ML VIAL ONE (15:47)
[2018-04-21 15:50] LABS: BASOPHILS % (AUTO) 0.5 % (0.0-2.0); EOSINOPHILS % (AUTO) 1.5 % (0.0-6.0); HEMATOCRIT 45 % (39-51); LYMPHOCYTES # (AUTO) 1.5 /CMM (0.8-4.8); LYMPHOCYTES % (AUTO) 21.7 % (20.0-44.0); MEAN CORPUSCULAR HEMOGLOBIN 32 PG (26.0-33.0); MEAN CORPUSCULAR HGB CONC 33 g/dl (31.0-36.0); MEAN CORPUSCULAR VOLUME 95 fL (80-96); MONOCYTES # (AUTO) 0.5 /CMM (0.1-1.30); NEUTROPHILS # (AUTO) 4.7 /CMM (1.8-8.9); NEUTROPHILS % (AUTO) 69.3 % (43.0-81.0); PLATELET COUNT (AUTO) 265 /CMM (150-450); RDW COEFFICIENT OF VARIATION 12.8 (11.5-15.0); RED BLOOD CELL COUNT(AUTO) 4.72 MIL/uL (4.5-6.0); WHITE BLOOD COUNT (AUTO) 6.8 K/uL (4.3-11.0)
[2018-04-21 16:06] LABS: CARBON DIOXIDE 21 mmol/L (21-32); CHLORIDE 99 mmol/L (98-107); CREATININE 1.1 mg/dL (0.6-1.3); GLUCOSE 200 mg/dL (74-106); INR 0.88 (0.85-1.15); POTASSIUM 4.3 mmol/L (3.5-5.1); SODIUM SERUM 134 mmol/L (136-145); UREA NITROGEN, BLOOD 14 mg/dL (7-18)
[2018-04-21 16:11] LABS: ALANINE AMINOTRANSFERASE 42 U/L (12-78); ALBUMIN 4.1 g/dL (3.4-5.0); ALKALINE PHOSPHATASE 64 U/L (46-116); ASPARTATE AMINOTRANSFERASE 28 U/L (15-37); BILIRUBIN,DIRECT 0.1 mg/dL (0.0-0.2); BILIRUBIN,TOTAL 0.3 mg/dL (0.2-1.0); LIPASE 621 U/L (73-393); TOTAL PROTEIN, SERUM 8.3 g/dL (6.4-8.2)
[2018-04-21 16:14] LABS: TROPONIN I < 0.017 ng/mL (0.00-0.056)
[2018-04-21] MEDS ORDERED: CT SWABBABLE VALVE TRANS SET 1 EA INFUS.SET MC ONE (16:21)
[2018-04-21] MEDS ORDERED: IOHEXOL-300 100 ML VIAL IV ONE (16:21)
[2018-04-21] MEDS ORDERED: IV NS 0.9% 250 ML IV ONE (16:21)
[2018-04-21] MEDS ORDERED: METOCLOPRAMIDE HCL 10 MG/2 ML VIAL IV ONE (17:30)
--- NOTE | 2018-04-21 17:30 | NUR ---
PT STILL C/O NAUSEA, MARSII, MULTIFOCAL BUTTON GRINDER AWARE.
[2018-04-21] MEDS ORDERED: METOCLOPRAMIDE HCL 10 MG/2 ML VIAL ONE (17:39)
[2018-04-21 18:01] VITALS: BP 132/84
== END 2018-04-21 17:25 | disposition home or self-care (01) ==
LOC: ER 15:08
DX: K29.70 Gastritis, unspecified, without bleeding (principal); E11.65 Type 2 diabetes mellitus with hyperglycemia; R74.8 Abnormal levels of other serum enzymes; F10.10 Alcohol abuse, uncomplicated; I10 Essential (primary) hypertension; E78.00 Pure hypercholesterolemia, unspecified; Y90.9 Presence of alcohol in blood, level not specified; Z98.890 Other specified postprocedural states
CPT/HCPCS: 36415; 71045; 74177; 80048; 80076; 83690; 84484; 85025; 85730; 93005; 96361; 96374; 96375; 99285; A4606; J2405; J2765; J7030; J7050; Q9967; Z7610

== ENCOUNTER 2018-10-11 11:41 | Emergency (ER) | payer MEDICARE, MEDICAID ==
[~2018-10-11] VITALS: Ht 167.6 cm; Wt 72.6 kg
[2018-10-11 11:41] VITALS: BP 147/91
[~2018-10-11 11:41] MED LIST changes: +METF-440 PO; -METF500T6 PO
== END 2018-10-11 12:47 | disposition home or self-care (01) ==
LOC: ER 11:48
DX: M19.072 Primary osteoarthritis, left ankle and foot (principal); I11.9 Hypertensive heart disease without heart failure; E11.9 Type 2 diabetes mellitus without complications; E78.00 Pure hypercholesterolemia, unspecified; F10.20 Alcohol dependence, uncomplicated; Y90.9 Presence of alcohol in blood, level not specified; Z98.890 Other specified postprocedural states

== ENCOUNTER 2018-10-30 12:15 | Emergency (ER) | payer MEDICARE, MEDICAID ==
[~2018-10-30] VITALS: Ht 167.6 cm; Wt 72.6 kg
--- NOTE | 2018-10-30 12:35 | NUR ---
+N/V WITH BACK PAIN X 3DAYS; SINCE SUNDAY AFTER DRINKING ETOH. PT AAOX3, VSS. DENIES CP, SOB, WEAKNESS @ THIS TIME. AWAITING EVAL BY ERMD & WILL CONT TO MONITOR.
[2018-10-30] MEDS ORDERED: ONDANSETRON HCL/PF 4 MG/2 ML VIAL IVP ONE (13:30)
[2018-10-30] MEDS ORDERED: IV NS 0.9% 1,000 ML BAG IV ONE (13:30)
[2018-10-30] MEDS ORDERED: MAG HYDROX/AL HYDROX/SIMETH 30 ML UDC PO ONE (13:30)
[2018-10-30] MEDS ORDERED: FAMOTIDINE/PF INJ 20 MG/2 ML VIAL IV ONE ×2 (13:30→13:51)
[2018-10-30] MEDS ORDERED: MAG HYDROX/AL HYDROX/SIMETH 30 ML UDC ONE (13:50)
[2018-10-30] MEDS ORDERED: ONDANSETRON HCL/PF 4 MG/2 ML VIAL ONE (13:50)
[2018-10-30 13:51] LABS: BASOPHILS # (AUTO) 0.1 /CMM (0.0-0.2); BASOPHILS % (AUTO) 0.8 % (0.0-2.0); EOSINOPHILS % (AUTO) 1.6 % (0.0-6.0); HEMATOCRIT 45 % (39-51); HEMOGLOBIN 16.1 g/dL (13.5-17.5); LYMPHOCYTES # (AUTO) 1.8 /CMM (0.8-4.8); LYMPHOCYTES % (AUTO) 26.4 % (20.0-44.0); MEAN CORPUSCULAR HGB CONC 36 g/dl (31.0-36.0); MEAN CORPUSCULAR VOLUME 96 fL (80-96); MONOCYTES # (AUTO) 0.5 /CMM (0.1-1.30); MONOCYTES % (AUTO) 7.1 % (2.0-12.0); NEUTROPHILS # (AUTO) 4.3 /CMM (1.8-8.9); NEUTROPHILS % (AUTO) 64.1 % (43.0-81.0); PLATELET COUNT (AUTO) 260 /CMM (150-450); RED BLOOD CELL COUNT(AUTO) 4.73 MIL/uL (4.5-6.0); WHITE BLOOD COUNT (AUTO) 6.7 K/uL (4.3-11.0)
[2018-10-30 13:58] LABS: CREATININE 0.9 mg/dL (0.6-1.3); POTASSIUM 4.9 mmol/L (3.5-5.1)
--- NOTE | 2018-10-30 14:00 | NUR ---
MEDICATED FOR NAUSEA PER ERMD ORDER, PT LUCILA WELL.
[2018-10-30 14:04] LABS: ALBUMIN 4.1 g/dL (3.4-5.0); BILIRUBIN,TOTAL 0.3 mg/dL (0.2-1.0); TOTAL PROTEIN, SERUM 8.3 g/dL (6.4-8.2)
[2018-10-30] MEDS ORDERED: CT SWABBABLE VALVE TRANS SET 1 EA INFUS.SET MC ONE (14:11)
[2018-10-30] MEDS ORDERED: IV NS 0.9% 250 ML IV ONE (14:11)
[2018-10-30] MEDS ORDERED: IOHEXOL-300 100 ML VIAL IV ONE (14:11)
[2018-10-30] MEDS ORDERED: MORPHINE SULFATE INJ 10 MG/ML DISP.SYRIN IV ONE (14:30)
--- NOTE | 2018-10-30 15:00 | NUR ---
PT REFUSED MORPHINE, DENIES PAIN @ THIS TIME. WILL CONT TO MONITOR.
[2018-10-30] MEDS ORDERED: ONDANSETRON 4 MG TAB.RAPDIS ONE (16:33)
--- NOTE | 2018-10-30 16:35 | NUR ---
MEDICATED FOR NAUSEA, PT LUCILA WELL.
--- NOTE | 2018-10-30 16:55 | NUR ---
Patient discharged to home in stable condition. Written and verbal after care instructions given. Patient verbalizes understanding of instruction. IV removed. Catheter intact and site benign. Pressure and 4x4 applied to site. No bleeding noted.
[2018-10-30 16:56] VITALS: BP 138/86
[2018-10-30] MEDS ORDERED: ONDANSETRON 4 MG TAB.RAPDIS SL ONE (17:00)
== END 2018-10-30 16:56 | disposition home or self-care (01) ==
LOC: ER 12:16
DX: K85.90 Acute pancreatitis without necrosis or infection, unspecified (principal); R10.13 Epigastric pain; R11.2 Nausea with vomiting, unspecified; E11.9 Type 2 diabetes mellitus without complications; I10 Essential (primary) hypertension; F10.10 Alcohol abuse, uncomplicated; Y90.9 Presence of alcohol in blood, level not specified; Z90.49 Acquired absence of other specified parts of digestive tract; Z98.890 Other specified postprocedural states
CPT/HCPCS: 36415; 80048-TC; 80076-TC; 83690-TC; 85025-TC; J2405; J3490; J7030; J7050; Q0162; Q9967

== ENCOUNTER 2019-01-11 13:00 | Inpatient (IN) | payer MEDICARE, MEDICAID ==
[~2019-01-11] VITALS: Ht 165.1 cm; Wt 75.3 kg
[2019-01-11] MEDS ORDERED: MORPHINE SULFATE INJ 4 MG/ML DISP.SYRIN ONE ×2 (13:21→14:58)
[2019-01-11] MEDS ORDERED: ONDANSETRON HCL/PF 4 MG/2 ML VIAL ONE ×2 (13:21→14:56)
--- NOTE | 2019-01-11 13:24 | NUR ---
C/O ABD PAIN NON RADIATING x 1 WEEK, +N/V. STATES PAIN IS 7/10. AOX4, CAPE VERDEAN-SPEAKING, AMB, VSS, RR EVEN AND UNLABORED. SKIN INTACT, NO ACUTE DISTRESS NOTED. DENIES SOB, DIZZINESS, WEAKNESS. READY FOR EVAL.
[2019-01-11] MEDS ORDERED: MORPHINE SULFATE INJ 2 MG/ML DISP.SYRIN IV ONE ×2 (13:30→15:00)
[2019-01-11] MEDS ORDERED: IV NS 0.9% 1,000 ML BAG IV ONE (13:30)
[2019-01-11] MEDS ORDERED: ONDANSETRON HCL/PF 4 MG/2 ML VIAL IVP ONE ×2 (13:30→15:00)
[2019-01-11 13:52] LABS: BASOPHILS % (AUTO) 0.5 % (0.0-2.0); EOSINOPHILS % (AUTO) 0.7 % (0.0-6.0); HEMATOCRIT 44 % (39-51); HEMOGLOBIN 15.4 g/dL (13.5-17.5); LYMPHOCYTES # (AUTO) 1.8 /CMM (0.8-4.8); LYMPHOCYTES % (AUTO) 24.6 % (20.0-44.0); MEAN CORPUSCULAR HGB CONC 35 g/dl (31.0-36.0); MEAN CORPUSCULAR VOLUME 96 fL (80-96); MONOCYTES # (AUTO) 0.5 /CMM (0.1-1.30); MONOCYTES % (AUTO) 6.5 % (2.0-12.0); NEUTROPHILS # (AUTO) 4.8 /CMM (1.8-8.9); NEUTROPHILS % (AUTO) 67.7 % (43.0-81.0); PLATELET COUNT (AUTO) 251 /CMM (150-450); RED BLOOD CELL COUNT(AUTO) 4.57 MIL/uL (4.5-6.0); WHITE BLOOD COUNT (AUTO) 7.2 K/uL (4.3-11.0)
--- NOTE | 2019-01-11 13:55 | NUR ---
PT IS HARD STICK. IV LINE ESTABLISHED, BLOOD DRAWN AND SENT TO STAT LAB. MEDS GIVEN PER ORDER. WILL CONT TO MONITOR.
[2019-01-11 13:58] LABS: CALCIUM, SERUM 8.6 mg/dL (8.5-10.1); CARBON DIOXIDE 24 mmol/L (21-32); CHLORIDE 99 mmol/L (98-107); CREATININE 0.9 mg/dL (0.6-1.3); GLUCOSE 196 mg/dL (74-106); POTASSIUM 4.9 mmol/L (3.5-5.1); SODIUM SERUM 136 mmol/L (136-145); UREA NITROGEN, BLOOD 8 mg/dL (7-18)
[2019-01-11 14:04] LABS: ALANINE AMINOTRANSFERASE 20 U/L (12-78); ALBUMIN 4.1 g/dL (3.4-5.0); ALKALINE PHOSPHATASE 65 U/L (46-116); ASPARTATE AMINOTRANSFERASE 14 U/L (15-37); BILIRUBIN,DIRECT 0.1 mg/dL (0.0-0.2); BILIRUBIN,TOTAL 0.3 mg/dL (0.2-1.0); LIPASE 831 U/L (73-393); TOTAL PROTEIN, SERUM 7.9 g/dL (6.4-8.2)
--- NOTE | 2019-01-11 14:19 | NUR ---
RISK CONTROL REPRESENTATIVE AT BEDSIDE
--- NOTE | 2019-01-11 15:00 | NUR ---
PT STILL HAVING VOMIT AND PAIN. JERSEY LORENZANA NOTIFIED.
[2019-01-11] MEDS ORDERED: GLIP5TAB13 PO (15:01)
--- NOTE | 2019-01-11 16:42 | NUR ---
PT RESTING IN BED, STILL HAVING VOMITING. PA NOTIFIED
--- NOTE | 2019-01-11 17:05 | NUR ---
312-2 TELE DX PANCREATITIS ACCEPTING [facility]
--- NOTE | 2019-01-11 17:23 | NUR ---
REPORT GIVEN TO EDE BRINK FOR 312-2 MS
--- NOTE | 2019-01-11 17:25 | NUR ---
PT TRANSFERRED TO FLOOR VIA WC
[2019-01-11 18:00] VITALS: BP 133/73
--- NOTE | 2019-01-11 18:00 | NUR ---
RN ADMITTING NOTES PATIENT ADMITTED FROM ER REPORT GIVEN BY VILMA. ALERT ORIENTED X 3. NO ACUTE DISTRESS NOTED. BREATHING UNLABORED. NO ACUTE DISTRESS NOTED. IV ACCESS PATENT AND INTACT. SAFETY MEASURES IN PLACE. CALL LIGHT WITH IN REACH. WILL CONTINUE TO MONITOR ACCORDINGLY.
[2019-01-11] MEDS ORDERED: IV D5W 1,000 ML IV PRN (18:39)
[2019-01-11] MEDS ORDERED: IV NS 0.9% 1,000 ML IV PRN (18:39)
--- NOTE | 2019-01-11 18:53 | NUR ---
MS RN NOTES RECEIVED NEW ORDERS FROM DR SCOTT FOR INSULIN REGULAR MILD SLIDING ACHS. NOTE AND CARRIED OUT.
[2019-01-11] MEDS ORDERED: MAGNESIUM HYDROXIDE 30 ML UDC PO PRN (19:00)
[2019-01-11] MEDS ORDERED: MAG HYDROX/AL HYDROX/SIMETH 30 ML UDC PO PRN (19:00)
[2019-01-11] MEDS ORDERED: ZOLPIDEM TARTRATE 5 MG TABLET PO PRN (19:00)
[2019-01-11] MEDS ORDERED: ACETAMINOPHEN 325 MG TABLET PO PRN (19:00)
[2019-01-11] MEDS ORDERED: DEXTROSE 50%-WATER 50 ML DISP.SYRIN IV PRN (19:00)
[2019-01-11] MEDS ORDERED: Z GUARD REMEDY 2 OZ OINT TP PRN (19:00)
--- NOTE | 2019-01-11 19:00 | NUR ---
MS RN NOTES PATIENT IN BED, HOB ELEVATED, ALERT ORIENTED X 3. NO ACUTE DISTRESS NOTED. BREATHING UNLABORED. NO ACUTE DISTRESS NOTED. IV ACCESS PATENT AND INTACT. SAFETY MEASURES IN PLACE. CALL LIGHT WITH IN REACH. ENDORSED TO NIGHT NURSE FOR CONTINUITY OF CARE AND ADMISSION.
--- NOTE | 2019-01-11 20:00 | NUR ---
MS RN NOTES RECEIVED PATIENT AWAKE IN BED WITH NO DISTRESS NOTED. CALL LIGHT WITHIN REACH. SITTER AT BEDSIDE. PERIPHERAL LINE INTACT AND PATENT. NO C/O PAIN OR DISCOMFORT. ROOM FREE OF CLUTTER AND BELONGINGS KEPT NEAR BEDSIDE. BED IN LOW LOCK SETTING. WILL CONTINUE TO MONITOR.
[2019-01-11] MEDS: IV D5/0.45 NACL 1,000 ML IV PRN (20:28)
[2019-01-11] MEDS: ONDANSETRON HCL/PF 4 MG/2 ML VIAL IVP PRN (20:30)
[2019-01-11] MEDS: BLOOD SUGAR DIAGNOSTIC 1 EACH STRIP IN SCH (21:09)
[2019-01-11] MEDS: MORPHINE SULFATE INJ 2 MG/ML DISP.SYRIN IV PRN (23:16)
[2019-01-12] MEDS: ONDANSETRON HCL/PF 4 MG/2 ML VIAL IVP PRN ×3 (02:35→15:07)
[2019-01-12] MEDS: MORPHINE SULFATE INJ 2 MG/ML DISP.SYRIN IV PRN (04:55)
[2019-01-12] MEDS: IV D5/0.45 NACL 1,000 ML IV PRN ×2 (04:55→17:42)
[2019-01-12] MEDS: INSULIN REGULAR, HUMAN 100 UNIT/ML 3 ML VIAL SQ PRN ×2 (06:10→21:12)
[2019-01-12 06:14] LABS: BASOPHILS % (AUTO) 0.2 % (0.0-2.0); HEMATOCRIT 42 % (39-51); HEMOGLOBIN 14.9 g/dL (13.5-17.5); LYMPHOCYTES # (AUTO) 1.1 /CMM (0.8-4.8); MEAN CORPUSCULAR HGB CONC 36 g/dl (31.0-36.0); MEAN CORPUSCULAR VOLUME 95 fL (80-96); MONOCYTES # (AUTO) 0.4 /CMM (0.1-1.30); MONOCYTES % (AUTO) 4.8 % (2.0-12.0); NEUTROPHILS # (AUTO) 7.3 /CMM (1.8-8.9); PLATELET COUNT (AUTO) 235 /CMM (150-450); RED BLOOD CELL COUNT(AUTO) 4.43 MIL/uL (4.5-6.0); WHITE BLOOD COUNT (AUTO) 8.8 K/uL (4.3-11.0)
[2019-01-12 06:19] LABS: CALCIUM, SERUM 8.5 mg/dL (8.5-10.1); MAGNESIUM 1.3 mg/dL (1.8-2.4); PHOSPHORUS 3.2 mg/dL (2.5-4.9); POTASSIUM 4.1 mmol/L (3.5-5.1)
[2019-01-12] MEDS: BLOOD SUGAR DIAGNOSTIC 1 EACH STRIP IN SCH ×4 (06:30→21:08)
--- NOTE | 2019-01-12 06:45 | NUR ---
MS RN NOTES PATIENT ASLEEP IN BED WITH NO DISTRESS NOTED. CALL LIGHT WITHIN REACH. SITTER AT BEDSIDE. NO FURTHER C/O PAIN OR DISCOMFORT. PERIPHERAL LINE INTACT AND PATENT. PATIENT STILL NOTED WITH EPISODES OF INTERMITTENT NV. NO BLEEDING NOTED. ROOM FREE OF CLUTTER AND BELONGINGS KEPT NEAR BEDSIDE. WILL ENDORSE TO ONCOMING SHIFT.
--- NOTE | 2019-01-12 08:03 | NUR ---
M/S RN OPENING NOTES RECEIVED PATIENT ON BED IN RIGHT SIDE LYING POSITION, SEMI ARANA POSITION IN COMFORT, COMPLAIN OF NAUSEA WITH BAG ON SIDE NEEDED, DOES NOT WANT TO BE REPOSITIONED AT THIS TIME. PATIENT IS A/O X 4 AND ABLE TO MAKE NEEDS KNOWN, RESPONSIVE TO ALL STIMULI. RESPIRATION EVEN AND NON LABORED WITH NO ACUTE RESPIRATORY DISTRESS. ABDOMEN SOFT AND NON DISTENDED WITH ACTIVE BOWEL SOUNDS TO ALL QUADRANTS. SKIN WARM TO TOUCH AND DRY. PATIENT COMPLAIN OF 5/10 PAIN POINTING AT LEFT UPPER SIDE. IV SITE AT RIGHT WRIST GAUGE 20 WITH NO S/SX OF INFILTRATION, RUNNING D51/2 NS AT 125 ML/HR. ALL CONCERNS ADDRESSED. WILL CONTINUE TO EVALUATE CARE.
[2019-01-12] MEDS ORDERED: LORAZEPAM INJ 2 MG/ML VIAL IV PRN (09:30)
[2019-01-12] MEDS: HYDROCODONE/APAP 5/325MG 1 EACH TABLET PO PRN ×2 (09:32→19:34)
[2019-01-12] MEDS: CHLORDIAZEPOXIDE HCL 25 MG CAPSULE PO SCH ×2 (09:49→17:33)
[2019-01-12] MEDS: Magnesium 1GM/D5W 100ML PREMIX 100 ML IV SCH ×4 (09:53→13:16)
--- NOTE | 2019-01-12 12:09 | NUR ---
M/S RN NOTES BLOOD SUGAR 189 WITH 3 UNITS COVERAGE NOT GIVEN DUE TO PATIENT WITH ORDER OF NPO. PATIENT NOTIFIED. WILL CONTINUE TO EVALUATE CARE
[2019-01-12] MEDS: SUCRALFATE 1 G TABLET PO SCH (17:33)
[2019-01-12] MEDS: METOPROLOL TARTRATE 50 MG TABLET PO SCH (17:33)
--- NOTE | 2019-01-12 17:35 | NUR ---
M/S RN NOTES ACCUCHECK WITH 202 WITH 4 UNITS SUPPOSED TO BE ADMINISTERED. NON-ADMINISTERED DUE TO NPO. PATIENT HAS NO S/SX OF HYPERGLYCEMIA REACTION AT THIS TIME. WILL CONTINUE TO MONITOR
--- NOTE | 2019-01-12 18:29 | NUR ---
M/S RN CLOSING NOTES PATIENT IS A/O X 4 AND ABLE TO MAKE NEEDS KNOWN, RESPONSIVE TO ALL STIMULI. RESPIRATION EVEN AND NON LABORED WITH NO ACUTE RESPIRATORY DISTRESS, O2 SAT OF 98% IN ROOM AIR. ABDOMEN SOFT AND NON DISTENDED WITH ACTIVE BOWEL SOUNDS TO ALL QUADRANTS, BM X1 TODAY WITH BRP AND URINAL ON BEDSIDE. SKIN WARM TO TOUCH AND DRY. PATIENT DENIES PAIN AND DISCOMFORT AT THIS TIME. IV SITE AT RIGHT WRIST GAUGE 20 WITH NO S/SX OF INFILTRATION, RUNNING D5 0.45% NS AT 125 ML/HR. ALL CONCERNS ADDRESSED. PLACED CALL LIGHT WITHIN REACH FOR SAFETY. ENDORSED PATIENT CARE TO NEXT SHIFT.
--- NOTE | 2019-01-12 19:30 | NUR ---
RN MS OPENING NOTES RECEIVED PATIENT IN BED AWAKE, ALERT AND ORIENTED X4, VERBALLY RESPONSIVE, ABLE TO MAKE NEEDS KNOWN. SAMI SPEAKER. NPO EXCEPT MEDS. BREATHING EVEN AND UNLABORED. NO SOB NOTED. TOLERATING ROOM AIR. WITH COMPLAINTS OF HEADACHE 6-7/10 ON A PAIN SCALE. WILL GIVE PRN PAIN MEDICATION ORDERED. IV ON RIGHT WRIST INTACT AND PATENT WITH IVF INFUSING. SKIN DRY AND WARM TO TOUCH. AFEBRILE. ALL OTHER NEEDS ATTENDED TO. URINAL AT BEDSIDE. SAFETY MEASURES IN PLACE. ON SEIZURE PRECAUTIONS. CALL LIGHT WITHIN REACH. WILL CONTINUE TO MONITOR.
[2019-01-12 20:06] VITALS: BP 138/80
[2019-01-13] MEDS: ONDANSETRON HCL/PF 4 MG/2 ML VIAL IVP PRN ×4 (00:06→23:22)
[2019-01-13] MEDS: IV D5/0.45 NACL 1,000 ML IV PRN ×2 (03:11→11:33)
[2019-01-13] MEDS: HYDROCODONE/APAP 5/325MG 1 EACH TABLET PO PRN ×2 (05:08→19:59)
[2019-01-13 06:31] LABS: BASOPHILS % (AUTO) 0.3 % (0.0-2.0); EOSINOPHILS % (AUTO) 0.7 % (0.0-6.0); HEMATOCRIT 42 % (39-51); HEMOGLOBIN 14.9 g/dL (13.5-17.5); LYMPHOCYTES # (AUTO) 1.4 /CMM (0.8-4.8); LYMPHOCYTES % (AUTO) 26.3 % (20.0-44.0); MEAN CORPUSCULAR HGB CONC 36 g/dl (31.0-36.0); MEAN CORPUSCULAR VOLUME 95 fL (80-96); MONOCYTES # (AUTO) 0.4 /CMM (0.1-1.30); MONOCYTES % (AUTO) 7.8 % (2.0-12.0); NEUTROPHILS # (AUTO) 3.5 /CMM (1.8-8.9); NEUTROPHILS % (AUTO) 64.9 % (43.0-81.0); PLATELET COUNT (AUTO) 223 /CMM (150-450); RED BLOOD CELL COUNT(AUTO) 4.42 MIL/uL (4.5-6.0); WHITE BLOOD COUNT (AUTO) 5.5 K/uL (4.3-11.0)
[2019-01-13] MEDS: INSULIN REGULAR, HUMAN 100 UNIT/ML 3 ML VIAL SQ PRN ×3 (06:32→17:05)
[2019-01-13] MEDS: BLOOD SUGAR DIAGNOSTIC 1 EACH STRIP IN SCH ×4 (06:33→21:23)
--- NOTE | 2019-01-13 06:49 | NUR ---
RN MS CLOSING NOTES PATIENT RESTING IN BED. NO ACUTE CHANGES THROUGHOUT SHIFT. REMAINS NPO EXCEPT MEDS. BREATHING EVEN AND UNLABORED. NO SOB NOTED. TOLERATING ROOM AIR. CURRENTLY WITH NO COMPLAINTS OF PAIN OR DISCOMFORT. IV ON RIGHT WRIST INTACT AND PATENT WITH IVF INFUSING. SKIN DRY AND WARM TO TOUCH. AFEBRILE. ALL OTHER NEEDS ATTENDED TO. URINAL AT BEDSIDE. SAFETY MEASURES IN PLACE. ON SEIZURE PRECAUTIONS. CALL LIGHT WITHIN REACH. WILL ENDORSE TO ONCOMING NURSE FOR ALEXIS.
[2019-01-13 06:50] LABS: CALCIUM, SERUM 8.4 mg/dL (8.5-10.1); MAGNESIUM 2.1 mg/dL (1.8-2.4)
--- NOTE | 2019-01-13 07:33 | NUR ---
MS RN OPENING NOTES RECEIVED PT AWAKE IN BED IN NO ACUTE SIGNS OF DISTRESS. HOB ELEVATED. A/O X4. COMORAN SPEAKING, DENIES PAIN OR ANY DISCOMFORTS AT THIS TIME. ON ROOM AIR, BREATHING EVEN AND UNLABORED. IV FLUIDS OF D5 1/2 NS @1255ML/HR INFUSING TO RIGHT WRIST G#20, NO S/S OF INFILTRATIONS NOTED AT SITE. SAFETY AND SEIZURE PRECAUTIONS IN PLACE. BED IN LOW LOCKED POSITION WITH SR UP X2. CALL LIGHT IN REACH. WILL CONTINUE TO MONITOR PT ACCORDINGLY. Addendum: 01/13/19 at 1831 by LENORA HACKETT RN CORRECTION: IVF IS 125ML/HR NOT 1255ML/HR
[2019-01-13 08:00] VITALS: BP 151/77
[2019-01-13] MEDS: CHLORDIAZEPOXIDE HCL 25 MG CAPSULE PO SCH ×2 (08:16→16:48)
[2019-01-13] MEDS: SUCRALFATE 1 G TABLET PO SCH ×2 (08:16→16:48)
[2019-01-13] MEDS: METOPROLOL TARTRATE 50 MG TABLET PO SCH ×2 (08:17→16:49)
[2019-01-13 16:00] VITALS: BP 137/82
--- NOTE | 2019-01-13 18:33 | NUR ---
MS RN CLOSING NOTES PATIENT AWAKE AND RESTING IN BED AT THIS TIME. A/O X4. LIBERIAN SPEAKING. CALMED AND COMPLIANT WITH CARE. ON ROOM AIR, BREATHING EVEN WITH NO ACUTE RESPIRATORY DISTRESS NOTED. IVF OF D5 1/2 NS @125 ML/HR INFUSING TO RIGHT WRIST G#20, NO S/S OF INFILTRATIONS NOTED AT SITE. ALL SAFETY AND SEIZURE PRECAUTIONS IN PLACE. BED IN LOW LOCKED POSITION WITH SR UP X2. CALL LIGHT IN REACH. ALL NEEDS AND CARE ATTENDED WELL. WILL ENDORSE TO DOCUMENTATION LIAISON NURSE FOR ALEXIS..
--- NOTE | 2019-01-13 20:00 | NUR ---
MS RN NOTES RECEIVED PATIENT AWAKE IN BED WITH NO DISTRESS NOTED. CALL LIGHT WITHIN REACH. PERIPHERAL LINE IN RIGHT WRIST INFILTRATED, LINE DC'D. PERIPHERAL LINE REPLACED WITH LAC #22 GAUGE AND TOLERATED WELL. NO C/O PAIN OR DISCOMFORT. BED IN LOW LOCK SETTING. ALL BELONGINGS KEPT NEAR BEDSIDE. WILL CONTINUE TO MONITOR.
[2019-01-13 20:20] VITALS: BP 133/78
[2019-01-13] MEDS ORDERED: ATORVASTATIN 10 MG TABLET PO SCH (22:00)
[2019-01-14] MEDS: HYDROCODONE/APAP 5/325MG 1 EACH TABLET PO PRN (00:13)
[2019-01-14] MEDS: IV D5/0.45 NACL 1,000 ML IV PRN (03:39)
[2019-01-14] MEDS: MORPHINE SULFATE INJ 2 MG/ML DISP.SYRIN IV PRN (06:17)
[2019-01-14] MEDS: ONDANSETRON HCL/PF 4 MG/2 ML VIAL IVP PRN ×2 (06:19→11:44)
[2019-01-14] MEDS: INSULIN REGULAR, HUMAN 100 UNIT/ML 3 ML VIAL SQ PRN ×2 (06:25→12:15)
--- NOTE | 2019-01-14 06:38 | NUR ---
PATIENT AWAKE IN BED WITH NO DISTRESS NOTED. CALL LIGHT WITHIN REACH. ALL DUE MEDS GIVEN ORDERED WITH NO ASE NOTED. NO FURTHER C/O PAIN OR DISCOMFORT. PERIPHERAL LINE INTACT AND PATENT. BED IN LOW LOCK SETTING. WILL ENDORSE TO ONCOMING SHIFT.
[2019-01-14] MEDS: BLOOD SUGAR DIAGNOSTIC 1 EACH STRIP IN SCH ×2 (06:57→12:22)
[2019-01-14 06:58] LABS: BASOPHILS % (AUTO) 0.5 % (0.0-2.0); EOSINOPHILS % (AUTO) 3.2 % (0.0-6.0); HEMATOCRIT 41 % (39-51); HEMOGLOBIN 14.4 g/dL (13.5-17.5); LYMPHOCYTES # (AUTO) 1.6 /CMM (0.8-4.8); LYMPHOCYTES % (AUTO) 30.2 % (20.0-44.0); MEAN CORPUSCULAR HGB CONC 35 g/dl (31.0-36.0); MEAN CORPUSCULAR VOLUME 95 fL (80-96); MONOCYTES # (AUTO) 0.5 /CMM (0.1-1.30); MONOCYTES % (AUTO) 9.2 % (2.0-12.0); NEUTROPHILS % (AUTO) 56.9 % (43.0-81.0); PLATELET COUNT (AUTO) 213 /CMM (150-450); RED BLOOD CELL COUNT(AUTO) 4.29 MIL/uL (4.5-6.0); WHITE BLOOD COUNT (AUTO) 5.3 K/uL (4.3-11.0)
[2019-01-14 07:35] LABS: CALCIUM, SERUM 8.5 mg/dL (8.5-10.1); CREATININE 0.9 mg/dL (0.6-1.3); MAGNESIUM 1.8 mg/dL (1.8-2.4); PHOSPHORUS 3.5 mg/dL (2.5-4.9); POTASSIUM 3.5 mmol/L (3.5-5.1)
[2019-01-14 08:00] VITALS: BP 144/80
[2019-01-14 08:27] VITALS: BP 144/80
[2019-01-14] MEDS: CHLORDIAZEPOXIDE HCL 25 MG CAPSULE PO SCH (08:50)
[2019-01-14] MEDS: SUCRALFATE 1 G TABLET PO SCH (08:50)
[2019-01-14 08:52] VITALS: BP 144/80
[2019-01-14] MEDS: METOPROLOL TARTRATE 50 MG TABLET PO SCH (08:52)
--- NOTE | 2019-01-14 12:15 | NUR ---
Patient tolerated 100 % of lunch. Given discharge instruction and follow up information with current medication list in Turkmen and Icelandic. Patient verbalized understanding. Discontinued IV site. Intact catheter tip noted. Patient identification bracelet removed. Jovan Etienne RN
== END 2019-01-14 13:00 | disposition home or self-care (01) | DRG 439 ==
LOC: ER 13:06 → TELE 17:21 → MED 01-12 08:14
PROVIDERS: ADMIT Student in an Organized Health Care Education/Training Program; ATTEND Student in an Organized Health Care Education/Training Program
DX: K85.20 Alcohol induced acute pancreatitis without necrosis or infection (principal); F10.239 Alcohol dependence with withdrawal, unspecified; E78.5 Hyperlipidemia, unspecified; K29.70 Gastritis, unspecified, without bleeding; N18.9 Chronic kidney disease, unspecified; I12.9 Hypertensive chronic kidney disease with stage 1 through stage 4 chronic kidney disease, or unspecified chronic kidney disease; K76.0 Fatty (change of) liver, not elsewhere classified; F17.200 Nicotine dependence, unspecified, uncomplicated; E11.22 Type 2 diabetes mellitus with diabetic chronic kidney disease; Z83.3 Family history of diabetes mellitus; Z82.49 Family history of ischemic heart disease and other diseases of the circulatory system; Z79.84 Long term (current) use of oral hypoglycemic drugs; Z79.899 Other long term (current) drug therapy
CPT/HCPCS: 36415; 76705-TC; 80048-TC; 80061-TC; 80076-TC; 82962-TC; 83690-TC; 83735-TC; 84100-TC; 84484-TC; 85025-TC; 87081-TC; G0378; J1815; J2060; J2270; J2405; J3475; J3490; J7030

== ENCOUNTER 2019-11-04 12:28 | Inpatient (IN) | payer MEDICARE, MEDICAID ==
[~2019-11-04] VITALS: Ht 170.2 cm; Wt 77.1 kg
[~2019-11-04 12:28] MED LIST changes: +GLIP5TAB13 PO; -HYDR25TA4 PO
--- NOTE | 2019-11-04 12:45 | NUR ---
EPIGASTRIC PAIN AND VOMITING, STS, HE HAS GASTRITIS FROM DRINKING ALCOHOL. PATIENT A/OX4, BREATHING EVEN AND UNLABORED, NO SOB NOTED. CHANGED INTO GOWN, ATTACHED TO THE ENGINEERING SURVEYOR.
[2019-11-04] MEDS ORDERED: IV NS 0.9% 1,000 ML BAG IV ONE (13:00)
[2019-11-04] MEDS ORDERED: PANTOPRAZOLE 40 MG VIAL IV ONE (13:00)
[2019-11-04] MEDS ORDERED: ONDANSETRON HCL/PF 4 MG/2 ML VIAL IVP ONE (13:00)
[2019-11-04 13:13] LABS: BASOPHILS % (AUTO) 0.3 % (0.0-2.0); EOSINOPHILS % (AUTO) 2.6 % (0.0-6.0); HEMATOCRIT 42 % (39-51); HEMOGLOBIN 14.1 g/dL (13.5-17.5); LYMPHOCYTES # (AUTO) 2.8 /CMM (0.8-4.8); LYMPHOCYTES % (AUTO) 32.4 % (20.0-44.0); MEAN CORPUSCULAR HGB CONC 34 g/dl (31.0-36.0); MEAN CORPUSCULAR VOLUME 95 fL (80-96); MONOCYTES # (AUTO) 0.5 /CMM (0.1-1.30); MONOCYTES % (AUTO) 5.9 % (2.0-12.0); NEUTROPHILS % (AUTO) 58.8 % (43.0-81.0); PLATELET COUNT (AUTO) 208 /CMM (150-450); RED BLOOD CELL COUNT(AUTO) 4.41 MIL/uL (4.5-6.0); WHITE BLOOD COUNT (AUTO) 8.6 K/uL (4.3-11.0)
[2019-11-04] MEDS ORDERED: PANTOPRAZOLE 40 MG VIAL ONE (13:13)
[2019-11-04] MEDS ORDERED: ONDANSETRON HCL/PF 4 MG/2 ML VIAL ONE (13:13)
[2019-11-04 13:19] LABS: CALCIUM, SERUM 8.6 mg/dL (8.5-10.1); CARBON DIOXIDE 21 mmol/L (21-32); CHLORIDE 101 mmol/L (98-107); CREATININE 0.9 mg/dL (0.6-1.3); GLUCOSE 330 mg/dL (74-106); POTASSIUM 4.7 mmol/L (3.5-5.1); SODIUM SERUM 136 mmol/L (136-145); UREA NITROGEN, BLOOD 17 mg/dL (7-18)
--- NOTE | 2019-11-04 13:19 | NUR ---
IV LINE ESTABLISHED, BLOOD DRAWN AND SENT TO LAB.
[2019-11-04 13:31] LABS: ALANINE AMINOTRANSFERASE 72 U/L (12-78); ALBUMIN 3.9 g/dL (3.4-5.0); ALKALINE PHOSPHATASE 64 U/L (46-116); ASPARTATE AMINOTRANSFERASE 45 U/L (15-37); BILIRUBIN,DIRECT 0.1 mg/dL (0.0-0.2); BILIRUBIN,TOTAL 0.3 mg/dL (0.2-1.0)
[2019-11-04 13:42] LABS: LIPASE 3640 U/L (73-393)
[2019-11-04 13:51] LABS: APPEARANCE,URINE Clear (CLEAR); BILIRUBIN,URINE Negative (NEGATIVE); BLOOD, URINE Negative Ery/uL (NEGATIVE); COLOR,URINE Yellow (YELLOW); KETONES,URINE Negative (NEGATIVE); LEUKOCYTE ESTERASE ,URINE Negative (NEGATIVE); NITRITE, URINE Negative (NEGATIVE); PROTEIN,URINE Negative (NEGATIVE); UGLUCOSE 500 MG/DL mg/dL (NEGATIVE); UROBILINOGEN,URINE 0.2 EU/dL (0.2)
[2019-11-04] MEDS ORDERED: BENA10TA74 PO (14:42)
--- NOTE | 2019-11-04 15:09 | NUR ---
SPOKE WITH CM FROM [facility]. AND AUTHORIZED PATIENT TO STAY.
--- NOTE | 2019-11-04 15:38 | NUR ---
MOVE SHEET SUBMITTED AND CALLED FOR BED
--- NOTE | 2019-11-04 15:44 | NUR ---
GOT OK TO STAY PER ADMITTING
[2019-11-04 16:00] VITALS: BP 170/94
--- NOTE | 2019-11-04 16:44 | NUR ---
BED ASSIGNMENT 315-2 [facility]
--- NOTE | 2019-11-04 17:14 | NUR ---
PATIENT TRANSFERRED TO ROOM 315-2 VIA ACLS PROTOCOL. PATIENT IN STABLE CONDITION.
--- NOTE | 2019-11-04 17:15 | NUR ---
REPORT GIVEN TO GAYLE MERA.
[2019-11-04] MEDS ORDERED: LORAZEPAM INJ 2 MG/ML VIAL IV PRN (17:30)
[2019-11-04] MEDS ORDERED: HYDROCODONE/APAP 5/325MG 1 EACH TABLET PO PRN (17:30)
[2019-11-04] MEDS ORDERED: ACETAMINOPHEN 325 MG TABLET PO PRN (17:30)
[2019-11-04] MEDS ORDERED: Z GUARD REMEDY 2 OZ OINT TP PRN (17:30)
[2019-11-04] MEDS ORDERED: MAGNESIUM HYDROXIDE 30 ML UDC PO PRN (17:30)
[2019-11-04] MEDS ORDERED: MAG HYDROX/AL HYDROX/SIMETH 30 ML UDC PO PRN (17:30)
[2019-11-04] MEDS ORDERED: MORPHINE SULFATE INJ 2 MG/ML DISP.SYRIN IV PRN (17:30)
--- NOTE | 2019-11-04 17:30 | NUR ---
MS/RN New Admit Patient transferred from ER reported by Marin MERA, AO x 4, able to responds all stimuli. Respiratory even and unlabored with room air, skin warm to touch, clean/dry, intact IV site. Keep lower position of bed with elevated HOB. Call light within reach, will continue to monitor.
[2019-11-04] MEDS ORDERED: DEXTROSE 50%-WATER 50 ML DISP.SYRIN IV PRN (18:00)
--- NOTE | 2019-11-04 18:40 | NUR ---
MS/RN Closing Note Patient is in bed comfortably, respiratory even and unlabored with room air, skin warm to touch, clean/dry, intact IV site. kept NPO states. Given Zofran 4mg via IV push for nausea. Keep lower position of bed with elevated HOB. Call light within reach, will endorse shiftman.
[2019-11-04] MEDS: ONDANSETRON HCL/PF 4 MG/2 ML VIAL IVP PRN (18:45)
[2019-11-04] MEDS: IV NS 0.9% 1,000 ML IV PRN (18:46)
--- NOTE | 2019-11-04 19:20 | NUR ---
MS/RN OPENING NOTES: RECEIVED PATIENT AWAKE AND RESTING IN BED, A/OX3-4. VERBALLY RESPONSIVE AND ABLE TO MAKE NEEDS KNOWN. [place] SPEAKING, SPEAKS AND UNDERSTANDS MINIMAL IRISH. NO SOB NOTED. ON ROOM AIR, SATURATING WELL. BREATHING EVEN AND UNLABORED. NO S/S OF ACUTE DISTRESS. NO COMPLAINS OF PAIN OR DISCOMFORT AT THIS TIME. IV SITE IN ON THE LEFT FOREARM #20G, INTACT PATENT AND WITH NS RUNNING AT 150MLS/HR. SKIN IS INTACT. SAFETY MEASURES ARE IN PLACE, BED IS IN LOW, LOCKED POSITION WITH SR UP X2. CALL LIGHT WITHIN REACH. WILL CONTINUE MONITORING PT. ACCORDINGLY.
[2019-11-04 20:00] VITALS: BP 146/84
[2019-11-04 20:41] VITALS: BP 146/84
[2019-11-04] MEDS: BLOOD SUGAR DIAGNOSTIC 1 EACH STRIP IN SCH (22:04)
[2019-11-04] MEDS: INSULIN REGULAR, HUMAN 100 UNIT/ML 3 ML VIAL SQ PRN (22:05)
[2019-11-05] MEDS: IV NS 0.9% 1,000 ML IV PRN ×3 (02:20→18:22)
[2019-11-05] MEDS: ONDANSETRON HCL/PF 4 MG/2 ML VIAL IVP PRN ×2 (05:12→13:09)
[2019-11-05] MEDS: BLOOD SUGAR DIAGNOSTIC 1 EACH STRIP IN SCH ×4 (06:44→21:47)
[2019-11-05] MEDS: INSULIN REGULAR, HUMAN 100 UNIT/ML 3 ML VIAL SQ PRN ×4 (06:45→21:49)
--- NOTE | 2019-11-05 06:48 | NUR ---
MS/RN CLOSING NOTES: PATIENT AWAKE IN BED, A/OX4. VERBALLY RESPONSIVE AND ABLE TO MAKE NEEDS KNOWN.COMPLAINED OF NAUSEA AT 0500. ADMINISTERED ZOFRAN 4MG IV. NO SOB NOTED. ON ROOM AIR, SATURATING WELL. BREATHING EVEN AND UNLABORED. NO S/S OF ACUTE DISTRESS. NO COMPLAINS OF PAIN OR DISCOMFORT AT THIS TIME. IV SITE ON THE LEFT FOREARM #20G, INTACT PATENT AND WITH NS RUNNING AT 150MLS/HR. SAFETY MEASURES ARE IN PLACE, BED IS IN LOW, LOCKED POSITION WITH SR UP X2. CALL LIGHT WITHIN REACH. WILL ENDORSE TO DAYSHIFT NURSE FOR [facility].
--- NOTE | 2019-11-05 07:15 | NUR ---
MS RN NOTES PATIENT IN BED ALERT ORIENTED X 4. NO ACUTE DISTRESS NOTED. BREATHING UNLABORED. NO SOB NOTED. SAFETY MEASURES IN PLACE. CALL LIGHT WITHIN REACH. WILL CONTINUE TO MONITOR ACCORDINGLY.
[2019-11-05 07:48] LABS: BASOPHILS % (AUTO) 0.4 % (0.0-2.0); EOSINOPHILS % (AUTO) 2.6 % (0.0-6.0); HEMATOCRIT 41 % (39-51); LYMPHOCYTES # (AUTO) 2.6 /CMM (0.8-4.8); MEAN CORPUSCULAR HGB CONC 34 g/dl (31.0-36.0); MEAN CORPUSCULAR VOLUME 94 fL (80-96); MONOCYTES # (AUTO) 0.5 /CMM (0.1-1.30); MONOCYTES % (AUTO) 7.3 % (2.0-12.0); NEUTROPHILS # (AUTO) 3.6 /CMM (1.8-8.9); NEUTROPHILS % (AUTO) 51.7 % (43.0-81.0); PLATELET COUNT (AUTO) 201 /CMM (150-450); RED BLOOD CELL COUNT(AUTO) 4.41 MIL/uL (4.5-6.0); WHITE BLOOD COUNT (AUTO) 6.9 K/uL (4.3-11.0)
[2019-11-05 08:00] VITALS: BP 139/86
[2019-11-05 08:45] LABS: CALCIUM, SERUM 8.5 mg/dL (8.5-10.1); CREATININE 0.9 mg/dL (0.6-1.3); MAGNESIUM 1.3 mg/dL (1.8-2.4); PHOSPHORUS 3.4 mg/dL (2.5-4.9); POTASSIUM 4.2 mmol/L (3.5-5.1)
[2019-11-05] MEDS: NICOTINE PATCH (14MG) 14 MG PATCH.TD24 TD SCH (08:59)
[2019-11-05] MEDS: METFORMIN 500 MG TABLET PO SCH ×2 (09:00→17:36)
[2019-11-05] MEDS: SUCRALFATE 1 G TABLET PO SCH ×2 (09:00→17:36)
[2019-11-05] MEDS: METOPROLOL TARTRATE 50 MG TABLET PO SCH ×2 (09:00→17:36)
[2019-11-05] MEDS: FOLIC ACID 1 MG TABLET PO SCH (09:00)
[2019-11-05] MEDS: MULTIVIT W/MINERALS 1 TAB TABLET PO SCH (09:00)
[2019-11-05] MEDS: glipiZIDE 5 MG TABLET PO SCH ×2 (09:00→17:35)
[2019-11-05] MEDS: THIAMINE HCL 100 MG TABLET PO SCH (09:00)
[2019-11-05] MEDS: BENAZEPRIL HCL 10 MG TABLET PO SCH (09:00)
[2019-11-05 10:00] LABS: THYROID STIMULATING HORMONE 2.283 uIU/mL (0.358-3.74)
--- NOTE | 2019-11-05 10:35 | NUR ---
MS RN NOTES RECEIVED NEW ORDER FROM MAK CHARLES NP TO CHANGE DIET TO CLEAR LIQUIDS, ORDER CLARIFIED AND READ BACK. NOTED AND CARRIED OUT.
[2019-11-05] MEDS: Magnesium 1GM/D5W 100ML PREMIX 100 ML IV SCH ×4 (10:58→14:16)
[2019-11-05] MEDS ORDERED: Magnesium 1GM/D5W 100ML PREMIX 100 ML IV SCH (11:30)
--- NOTE | 2019-11-05 15:30 | NUR ---
MS RN NOTES PATIENT STARTED FEELING NAUSEA WITH MINIMAL EMESIS, ZOFRAN WAS ALREADY GIVEN AT 1309, FELT BETTER AND JUST STARTED FEELING NAUSEA WITH MINIMAL EMESIS AGAIN. NOTIFIED SPECIAL DELIVERY CLERK MAK OBREGON WITH NEW ORDER FOR REGLAN 10 MG IV Q6R PRN, ORDER CLARIFIED AND READ BACK, NOTED AND CARRIED OUT
[2019-11-05] MEDS: METOCLOPRAMIDE HCL 10 MG/2 ML VIAL IV PRN ×2 (15:54→21:47)
[2019-11-05 16:00] VITALS: BP 138/68
--- NOTE | 2019-11-05 17:37 | NUR ---
MS RN NOTES PATIENT REFUSED INSULIN ADMINISTRATION DESPITE OF EXPLANATION OF RISKS AND BENEFITS
--- NOTE | 2019-11-05 18:58 | NUR ---
MS RN NOTES PATIENT IN BED ALERT ORIENTED X 4. NO ACUTE DISTRESS NOTED. BREATHING UNLABORED. NO SOB NOTED. NEEDS ATTENDED AND ANTICIPATED. KEPT CLEAN DRY AND COMFORTABLE. SAFETY MEASURES IN PLACE. CALL LIGHT WITHIN REACH. WILL ENDORSE TO NIGHT NURSE FOR CONTINUITY OF CARE
--- NOTE | 2019-11-05 19:34 | NUR ---
MS RN NOTES PATIENT RECEIVED RESTING IN BED WATCHING TV, A/O X4 MOSTLY [place] SPEAKING. PATIENT STABLE ON RA WITH BREATHING EVEN AND UNLABORED, NO SOB NOTED. NO SIGNS OF ACUTE DISTRESS. NO COMPLAINTS OF PAIN OR DISCOMFORT. SEIZURE PRECAUTIONS IN PLACE IV LOCATED L FA #20 RUNNING NS @ 150 ML/HR. SAFETY PRECAUTIONS IN PLACE WITH BED IN LOWEST POSITION, CALL LIGHT WITHIN REACH, AND BREAKS ON,SIDE RAILS UP X2. WILL CONTINUE TO MONITOR.
[2019-11-05 20:00] VITALS: BP 140/86
[2019-11-05] MEDS ORDERED: ATORVASTATIN 10 MG TABLET PO SCH (22:00)
--- NOTE | 2019-11-05 22:00 | NUR ---
MS RN NOTES PRN REGLAN GIVEN TO PATIENT DUE TO NAUSEA. NO EMESIS PRESENT. WILL CONTINUE TO MONITOR.
[2019-11-06] MEDS: IV NS 0.9% 1,000 ML IV PRN ×2 (01:45→08:49)
[2019-11-06] MEDS: ONDANSETRON HCL/PF 4 MG/2 ML VIAL IVP PRN (02:20)
[2019-11-06 06:22] LABS: BASOPHILS % (AUTO) 0.3 % (0.0-2.0); EOSINOPHILS % (AUTO) 1.3 % (0.0-6.0); HEMATOCRIT 43 % (39-51); HEMOGLOBIN 14.7 g/dL (13.5-17.5); LYMPHOCYTES # (AUTO) 2.6 /CMM (0.8-4.8); LYMPHOCYTES % (AUTO) 37.1 % (20.0-44.0); MEAN CORPUSCULAR HGB CONC 35 g/dl (31.0-36.0); MEAN CORPUSCULAR VOLUME 93 fL (80-96); MONOCYTES # (AUTO) 0.5 /CMM (0.1-1.30); MONOCYTES % (AUTO) 7.7 % (2.0-12.0); NEUTROPHILS # (AUTO) 3.7 /CMM (1.8-8.9); NEUTROPHILS % (AUTO) 53.6 % (43.0-81.0); PLATELET COUNT (AUTO) 200 /CMM (150-450); RED BLOOD CELL COUNT(AUTO) 4.59 MIL/uL (4.5-6.0); WHITE BLOOD COUNT (AUTO) 6.9 K/uL (4.3-11.0)
[2019-11-06] MEDS: BLOOD SUGAR DIAGNOSTIC 1 EACH STRIP IN SCH ×2 (06:36→12:17)
[2019-11-06] MEDS: METOCLOPRAMIDE HCL 10 MG/2 ML VIAL IV PRN (06:36)
--- NOTE | 2019-11-06 06:44 | NUR ---
MS RN NOTES PATIENT REFUSED INSULIN COVERAGE OF FSBS 163. EDUCATED PATIENT, BUT PATIENT STILL REFUSED.
--- NOTE | 2019-11-06 06:46 | NUR ---
MS RN CLOSING NOTES PATIENT RESTING IN BED , A/O X4 MOSTLY [place] SPEAKING. PATIENT STABLE ON RA WITH BREATHING EVEN AND UNLABORED, NO SOB NOTED. NO SIGNS OF ACUTE DISTRESS. NO COMPLAINTS OF PAIN OR DISCOMFORT. SEIZURE PRECAUTIONS IN PLACE IV LOCATED L FA #20 RUNNING NS @ 150 ML/HR. SAFETY PRECAUTIONS IN PLACE WITH BED IN LOWEST POSITION, CALL LIGHT WITHIN REACH, AND BREAKS ON,SIDE RAILS UP X2. PATIENT KEPT CLEAN AND DRY THROUGHOUT THE NIGHT- ALL NEEDS ATTENDED TO. WILL ENDORSE TO ONCOMING SHIFT ABOUT ALEXIS.
[2019-11-06 06:54] LABS: CALCIUM, SERUM 8.4 mg/dL (8.5-10.1); CREATININE 0.9 mg/dL (0.6-1.3); MAGNESIUM 1.7 mg/dL (1.8-2.4); PHOSPHORUS 2.9 mg/dL (2.5-4.9); POTASSIUM 3.6 mmol/L (3.5-5.1)
[2019-11-06 08:10] VITALS: BP 152/78
[2019-11-06] MEDS: METFORMIN 500 MG TABLET PO SCH (08:41)
[2019-11-06] MEDS: SUCRALFATE 1 G TABLET PO SCH ×2 (08:41→16:02)
[2019-11-06] MEDS: FOLIC ACID 1 MG TABLET PO SCH (08:41)
[2019-11-06] MEDS: MULTIVIT W/MINERALS 1 TAB TABLET PO SCH (08:41)
[2019-11-06 08:42] VITALS: BP 152/78
[2019-11-06] MEDS: THIAMINE HCL 100 MG TABLET PO SCH (08:42)
[2019-11-06] MEDS: METOPROLOL TARTRATE 50 MG TABLET PO SCH (08:42)
[2019-11-06] MEDS: glipiZIDE 5 MG TABLET PO SCH (08:42)
[2019-11-06] MEDS: BENAZEPRIL HCL 10 MG TABLET PO SCH (08:42)
[2019-11-06] MEDS: NICOTINE PATCH (14MG) 14 MG PATCH.TD24 TD SCH (08:43)
[2019-11-06] MEDS: Magnesium 1GM/D5W 100ML PREMIX 100 ML IV SCH ×2 (09:58→11:11)
--- NOTE | 2019-11-06 10:25 | NUR ---
MS RN NOTES PATIENT SEEN AND EVALUATED BY MAK CHARLES KIT PLANNER WITH NEW ORDER TO CHANGE DIET TO CCHO CARDIAC, ORDER CLARIFIED AND READ BACK, NOTED AND CARRIED OUT.
[2019-11-06] MEDS ORDERED: Thiamine HCL PO (10:37)
[2019-11-06] MEDS ORDERED: Multivit W/Minerals PO (10:37)
[2019-11-06] MEDS ORDERED: Folic Acid PO (10:37)
[2019-11-06] MEDS: INSULIN REGULAR, HUMAN 100 UNIT/ML 3 ML VIAL SQ PRN (12:16)
--- NOTE | 2019-11-06 13:00 | NUR ---
MS RN NOTES PATIENT ATE LUNCH TOLERATING DIET WELL, NO VOMITING NOTED.
[2019-11-06] MEDS ORDERED: ONDA4TAB5 PO ×2 (13:12→13:16)
--- NOTE | 2019-11-06 16:10 | NUR ---
MS RN NOTES PATIENT REFUSED TO TAKE METFORMIN, GLIPIZIDE AND METOPROLOL DUE AT THIS TIME, HE SAID HE WILL TAKE IT AT HOME LATER.
--- NOTE | 2019-11-06 16:45 | NUR ---
MS RN NOTES IV ACCESS REMOVED, NO REDNESS, NO SWELLING, NO BLEEDING NOTED.
--- NOTE | 2019-11-06 16:45 | NUR ---
MS RN NOTES PATIENT DISCHARGE HOME WITH STABLE VITAL SIGNS, NO ACUTE DISTRESS NOTED. BREATHING UNLABORED. NO SOB NOTED. DENIED NAUSEA AND VOMITING. DENIED ANY PAIN. DISCHARGE INSTRUCTIONS GIVEN TO THE PATIENT INCLUDING FOLLOW UP WITH PRIMARY AND GI DOCTOR AND NEW PRESCRIPTIONS, VERBALIZED UNDERSTANDING. ALL BELONGINGS ACCOUNTED FOR. SKIN IS INTACT. ASSISTED TO THE LOBBY, PATIENT AMBULATORY WITH STEADY GAIT. ALERT ORIENTED X 4. TAP CARD FOR BUS PROVIDED TO THE PATIENT.
== END 2019-11-06 16:45 | disposition home or self-care (01) | DRG 439 ==
LOC: ER 12:28 → MED 16:44 → TELE 18:29 → MED 18:33
PROVIDERS: ADMIT Registered Nurse; ATTEND Registered Nurse
DX: K85.20 Alcohol induced acute pancreatitis without necrosis or infection (principal); E87.2 Acidosis; K86.0 Alcohol-induced chronic pancreatitis; I12.9 Hypertensive chronic kidney disease with stage 1 through stage 4 chronic kidney disease, or unspecified chronic kidney disease; N18.9 Chronic kidney disease, unspecified; Z79.84 Long term (current) use of oral hypoglycemic drugs; E78.5 Hyperlipidemia, unspecified; E11.22 Type 2 diabetes mellitus with diabetic chronic kidney disease; F17.210 Nicotine dependence, cigarettes, uncomplicated; R74.0 Nonspecific elevation of levels of transaminase and lactic acid dehydrogenase [LDH]; E11.65 Type 2 diabetes mellitus with hyperglycemia; F10.10 Alcohol abuse, uncomplicated; Y90.4 Blood alcohol level of 80-99 mg/100 ml; K29.20 Alcoholic gastritis without bleeding
CPT/HCPCS: 36415; 80048-TC; 80061-TC; 80076-TC; 81000-TC; 82962-TC; 83690-TC; 83735-TC; 84100-TC; 84443-TC; 84484-TC; 85025-TC; 87081-TC; 97116-TC; 97530-TC; C9113; G0378; G0480; J1815; J2405; J2765; J3475; J7030

== ENCOUNTER 2022-04-07 12:05 | Emergency (ER) | payer OTHER ==
[~2022-04-07] VITALS: Ht 170.2 cm; Wt 77.1 kg
[~2022-04-07 12:05] MED LIST changes: +BENA10TA74 PO; +Folic Acid PO; +Multivit W/Minerals PO; +ONDA4TAB5 PO; +Thiamine HCL PO
--- NOTE | 2022-04-07 12:19 | NUR ---
BIBS, c/o abdominal pain for last 2 days, emesis and nausea , Void gave urine specimen
[2022-04-07] MEDS ORDERED: ONDANSETRON 4 MG TAB.RAPDIS SL ONE (12:30)
[2022-04-07] MEDS ORDERED: MAG HYDROX/AL HYDROX/SIMETH 30 ML UDC PO ONE (12:30)
[2022-04-07] MEDS ORDERED: LIDOCAINE VISCOUS 2% UD 15 ML UDC MM ONE (12:30)
[2022-04-07] MEDS ORDERED: FAMOTIDINE (20 MG) 20 MG TABLET PO ONE (12:30)
[2022-04-07] MEDS ORDERED: PANT40TA2 PO (12:34)
[2022-04-07] MEDS ORDERED: LIDOCAINE VISCOUS 2% UD 15 ML UDC ONE (12:47)
[2022-04-07] MEDS ORDERED: MAG HYDROX/AL HYDROX/SIMETH 30 ML UDC ONE (12:47)
[2022-04-07] MEDS ORDERED: FAMOTIDINE (20 MG) 20 MG TABLET ONE (12:47)
[2022-04-07] MEDS ORDERED: ONDANSETRON 4 MG TAB.RAPDIS ONE (12:48)
[2022-04-07 13:05] VITALS: BP 138/76
== END 2022-04-07 13:06 | disposition home or self-care (01) ==
LOC: ER 12:28
DX: K29.20 Alcoholic gastritis without bleeding (principal); F10.10 Alcohol abuse, uncomplicated; R11.0 Nausea; I10 Essential (primary) hypertension; E11.9 Type 2 diabetes mellitus without complications; Z79.899 Other long term (current) drug therapy; Y90.9 Presence of alcohol in blood, level not specified
CPT/HCPCS: 99284; Q0162

== ENCOUNTER 2022-07-12 10:37 | Emergency (ER) | payer OTHER ==
[~2022-07-12] VITALS: Ht 165.1 cm; Wt 72.6 kg
[~2022-07-12 10:37] MED LIST changes: +PANT40TA2 PO
--- NOTE | 2022-07-12 10:38 | NUR ---
CAME IN FOR NAUSEA AND VOMITING SINCE YESTERDAY. "I TOOK BEER YESTERDAY AND I STARTED VOMITING" ALSO C/O ON AND OFF CHEST PAIN x 3DAYS, "GOES AWAY WHEN I RELAX". TO ER BED 7, HOOKED TO MONITOR, CHANGED TO HOSP GOWN, WARM BLANKET PROVIDED. AWAITING MD TY
--- NOTE | 2022-07-12 10:42 | NUR ---
DR BANUELOS AT BEDSIDE
[2022-07-12] MEDS ORDERED: ONDANSETRON HCL/PF - ER 4 MG/2 ML VIAL IV ONE (11:00)
[2022-07-12] MEDS ORDERED: IV NS 0.9% 1,000 ML BAG IV ONE (11:00)
[2022-07-12] MEDS ORDERED: MAG HYDROX/AL HYDROX/SIMETH 30 ML UDC PO ONE (11:00)
[2022-07-12] MEDS ORDERED: FAMOTIDINE/PF INJ 20 MG/2 ML VIAL IV ONE ×2 (11:00→11:10)
[2022-07-12] MEDS ORDERED: MAG HYDROX/AL HYDROX/SIMETH 30 ML UDC ONE (11:09)
[2022-07-12] MEDS ORDERED: ONDANSETRON HCL/PF 4 MG/2 ML VIAL ONE (11:09)
[2022-07-12 11:15] LABS: BASOPHILS % (AUTO) 0.6 % (0.0-2.0); EOSINOPHILS % (AUTO) 2.3 % (0.0-6.0); HEMATOCRIT 39 % (39-51); HEMOGLOBIN 13.4 g/dL (13.5-17.5); LYMPHOCYTES % (AUTO) 38.9 % (20.0-44.0); MEAN CORPUSCULAR HGB CONC 34 g/dl (31.0-36.0); MEAN CORPUSCULAR VOLUME 94 fL (80-96); MONOCYTES # (AUTO) 0.5 K/uL (0.1-1.30); MONOCYTES % (AUTO) 10.7 % (2.0-12.0); NEUTROPHILS # (AUTO) 2.4 K/uL (1.8-8.9); NEUTROPHILS % (AUTO) 47.5 % (43.0-81.0); PLATELET COUNT (AUTO) 257 K/uL (150-450); RED BLOOD CELL COUNT(AUTO) 4.18 MIL/uL (4.5-6.0); WHITE BLOOD COUNT (AUTO) 5.1 K/uL (4.3-11.0)
--- NOTE | 2022-07-12 11:16 | NUR ---
NET DEVELOPER ARCHITECT AT BEDSIDE
[2022-07-12 11:47] LABS: CALCIUM, SERUM 8.3 mg/dL (8.5-10.1); CREATININE 0.8 mg/dL (0.6-1.3)
[2022-07-12 11:54] LABS: ALBUMIN 3.8 g/dL (3.4-5.0); BILIRUBIN,DIRECT 0.1 mg/dL (0.0-0.2); BILIRUBIN,TOTAL 0.4 mg/dL (0.2-1.0); TOTAL PROTEIN, SERUM 7.2 g/dL (6.4-8.2)
--- NOTE | 2022-07-12 12:04 | NUR ---
PATIENT UNABLE TO PROVIDE URINE SAMPLE. MD SINGH
[2022-07-12] MEDS ORDERED: MORPHINE SULFATE INJ 2 MG/ML DISP.SYRIN IV ONE (12:30)
--- NOTE | 2022-07-12 12:57 | NUR ---
PATIENT NOT ABLE TO PROVIDE URINE SAMPLE. MD SINGH
[2022-07-12] MEDS ORDERED: MORPHINE SULFATE INJ 4 MG/ML DISP.SYRIN ONE (13:28)
--- NOTE | 2022-07-12 13:40 | NUR ---
URINE SAMPLE COLLECTED AND SENT TO LAB
[2022-07-12 13:51] LABS: BILIRUBIN,URINE NEGATIVE (NEGATIVE); COLOR,URINE YELLOW (YELLOW); LEUKOCYTE ESTERASE ,URINE NEGATIVE (NEGATIVE); NITRITE, URINE NEGATIVE (NEGATIVE); PROTEIN,URINE NEGATIVE (NEGATIVE); UGLUCOSE 100 MG/DL mg/dL (NEGATIVE); UROBILINOGEN,URINE 0.2 EU/dL (0.2)
--- NOTE | 2022-07-12 14:14 | NUR ---
IV removed. Catheter intact and site benign. Pressure and 4x4 applied to site. No bleeding noted.Patient discharged to home in stable condition. Written and verbal after care instructions given. Patient verbalizes understanding of instruction.
[2022-07-12 14:15] VITALS: BP 127/76
== END 2022-07-12 14:15 | disposition home or self-care (01) ==
LOC: ER 11:02
DX: K85.90 Acute pancreatitis without necrosis or infection, unspecified (principal); F10.90 Alcohol use, unspecified, uncomplicated; E78.00 Pure hypercholesterolemia, unspecified; E11.9 Type 2 diabetes mellitus without complications; Z79.899 Other long term (current) drug therapy; Y90.7 Blood alcohol level of 200-239 mg/100 ml
CPT/HCPCS: 99285; 96374; 96361; 96375; 93005; 74176; 85025; 80048; 83690; 80076; 81003; 36415; 84484; 80320; J2270; J3490; J2405; J7030; G0480

== ENCOUNTER 2022-10-26 16:33 | Emergency (ER) | payer OTHER ==
[~2022-10-26] VITALS: Ht 154.9 cm; Wt 72.6 kg
--- NOTE | 2022-10-26 17:10 | NUR ---
BIBS W/ C/O EPIGASTRIC PAIN, NAUSEA AND VOMITING SINCE YESTERDAY, Hx OF GASTRITIS. TO ER BED 9.
--- NOTE | 2022-10-26 17:25 | NUR ---
Urine sample collected, sent to lab
--- NOTE | 2022-10-26 18:02 | NUR ---
DR MORALES AT BEDSIDE
[2022-10-26 18:22] LABS: HEMATOCRIT 43 % (39-51); HEMOGLOBIN 14.1 g/dL (13.5-17.5); MEAN CORPUSCULAR HGB CONC 33 g/dl (31.0-36.0); MEAN CORPUSCULAR VOLUME 95 fL (80-96); PLATELET COUNT (AUTO) 249 K/uL (150-450); WHITE BLOOD COUNT (AUTO) 6.5 K/uL (4.3-11.0)
--- NOTE | 2022-10-26 18:27 | NUR ---
PT RETURNED FROM RADIOLOGY
--- NOTE | 2022-10-26 18:38 | NUR ---
IV STARTED. R FA 20G.
[2022-10-26 18:40] LABS: ALANINE AMINOTRANSFERASE 24 U/L (12-78); ALKALINE PHOSPHATASE 55 U/L (46-116); ASPARTATE AMINOTRANSFERASE 17 U/L (15-37); BILIRUBIN,DIRECT 0.1 mg/dL (0.0-0.2); BILIRUBIN,TOTAL 0.3 mg/dL (0.2-1.0); CALCIUM, SERUM 8.7 mg/dL (8.5-10.1); CARBON DIOXIDE 22 mmol/L (21-32); CHLORIDE 102 mmol/L (98-107); GLUCOSE 166 mg/dL (74-106); LIPASE 1290 U/L (73-393); POTASSIUM 4.1 mmol/L (3.5-5.1); SODIUM SERUM 136 mmol/L (136-145); TOTAL PROTEIN, SERUM 7.9 g/dL (6.4-8.2); UREA NITROGEN, BLOOD 10 mg/dL (7-18)
[2022-10-26] MEDS ORDERED: FAMOTIDINE (20 MG) 20 MG TABLET PO ONE (19:00)
[2022-10-26] MEDS ORDERED: LIDOCAINE VISCOUS 2% UD 15 ML UDC MM ONE (19:00)
[2022-10-26] MEDS ORDERED: MAG HYDROX/AL HYDROX/SIMETH 30 ML UDC PO ONE (19:00)
[2022-10-26] MEDS ORDERED: FAMOTIDINE (20 MG) 20 MG TABLET ONE (19:01)
[2022-10-26] MEDS ORDERED: MAG HYDROX/AL HYDROX/SIMETH 30 ML UDC ONE (19:01)
[2022-10-26] MEDS ORDERED: LIDOCAINE VISCOUS 2% UD 15 ML UDC ONE (19:01)
--- NOTE | 2022-10-26 19:05 | NUR ---
XYLOCAINE, MAALOX, AND PEPCID PO GIVEN INDICATED, LUCILA WELL.
--- NOTE | 2022-10-26 19:07 | NUR ---
PER DR MORALES, OK FOR PT TO HAVE ZOFRAN 4MG IV X1; ORDER READ BACK AND VERIFIED.
[2022-10-26] MEDS ORDERED: ONDANSETRON HCL/PF 4 MG/2 ML VIAL ONE (19:08)
[2022-10-26 19:11] LABS: BILIRUBIN,URINE NEGATIVE (NEGATIVE); COLOR,URINE YELLOW (YELLOW); LEUKOCYTE ESTERASE ,URINE NEGATIVE (NEGATIVE); NITRITE, URINE NEGATIVE (NEGATIVE); PROTEIN,URINE NEGATIVE (NEGATIVE); UGLUCOSE NEGATIVE (NEGATIVE); UROBILINOGEN,URINE 0.2 EU/dL (0.2)
[2022-10-26] MEDS ORDERED: ONDANSETRON HCL/PF 4 MG/2 ML VIAL IV ONE (19:30)
[2022-10-26 20:22] LABS: EOSINOPHILS % (MANUAL) 1 % (0-4); LYMPHOCYTES % (MANUAL) 35 % (16-48); MONOCYTES % (MANUAL) 6 % (0-11.0); NEUTROPHILS % (MANUAL) 58 (42-76)
[2022-10-26] MEDS ORDERED: OXYC5CAP18 PO (20:46)
[2022-10-26] MEDS ORDERED: ONDA4TAB5 PO (20:46)
--- NOTE | 2022-10-26 21:00 | NUR ---
Javon turpineliza in [facility], [place] - 10/26/22 at 2101 by DAVID D
[2022-10-26 21:01] VITALS: BP 140/88
--- NOTE | 2022-10-26 21:01 | NUR ---
Patient discharged to home in stable condition. Written and verbal after care instructions given. Patient verbalizes understanding of instruction.
== END 2022-10-26 21:02 | disposition home or self-care (01) ==
LOC: ER 16:54
DX: K85.90 Acute pancreatitis without necrosis or infection, unspecified (principal); K29.20 Alcoholic gastritis without bleeding; I10 Essential (primary) hypertension; E78.00 Pure hypercholesterolemia, unspecified; E11.9 Type 2 diabetes mellitus without complications; Z79.899 Other long term (current) drug therapy; Z79.84 Long term (current) use of oral hypoglycemic drugs
CPT/HCPCS: 99285; 74176; 96374; 93005; 85025; 80048; 83690; 80076; 81003; 36415; 84484; 85007; J2405

== ENCOUNTER 2023-02-23 15:29 | Emergency (ER) | payer BC, OTHER ==
[~2023-02-23] VITALS: Ht 170.2 cm; Wt 74.8 kg
[~2023-02-23 15:29] MED LIST changes: +OXYC5CAP18 PO
--- NOTE | 2023-02-23 15:55 | NUR ---
URINE SAMPLE COLLECTED AND SENT TO LAB
[2023-02-23] MEDS ORDERED: MAG HYDROX/AL HYDROX/SIMETH 30 ML UDC PO ONE (16:30)
[2023-02-23] MEDS ORDERED: ONDANSETRON HCL/PF 4 MG/2 ML VIAL IVP ONE (16:30)
[2023-02-23] MEDS ORDERED: LIDOCAINE VISCOUS 2% UD 15 ML UDC MM ONE (16:30)
--- NOTE | 2023-02-23 16:55 | NUR ---
iv established. LAC 20g
--- NOTE | 2023-02-23 16:56 | NUR ---
blood drawn and sent to lab
--- NOTE | 2023-02-23 16:57 | NUR ---
patient taken to ct via [facility]
[2023-02-23 17:02] LABS: BASOPHILS % (AUTO) 0.4 % (0.0-2.0); EOSINOPHILS % (AUTO) 3.1 % (0.0-6.0); HEMATOCRIT 42 % (39-51); HEMOGLOBIN 13.9 g/dL (13.5-17.5); LYMPHOCYTES # (AUTO) 1.8 K/uL (0.8-4.8); MEAN CORPUSCULAR HGB CONC 33 g/dl (31.0-36.0); MEAN CORPUSCULAR VOLUME 96 fL (80-96); MONOCYTES # (AUTO) 0.4 K/uL (0.1-1.30); MONOCYTES % (AUTO) 7.1 % (2.0-12.0); NEUTROPHILS # (AUTO) 3.7 K/uL (1.8-8.9); NEUTROPHILS % (AUTO) 60.4 % (43.0-81.0); PLATELET COUNT (AUTO) 211 K/uL (150-450); WHITE BLOOD COUNT (AUTO) 6.1 K/uL (4.3-11.0)
[2023-02-23] MEDS ORDERED: MAG HYDROX/AL HYDROX/SIMETH 30 ML UDC ONE (17:07)
[2023-02-23] MEDS ORDERED: LIDOCAINE VISCOUS 2% UD 15 ML UDC ONE (17:07)
[2023-02-23] MEDS ORDERED: ONDANSETRON HCL/PF 4 MG/2 ML VIAL ONE ×2 (17:07→20:40)
[2023-02-23 17:17] LABS: CALCIUM, SERUM 8.7 mg/dL (8.5-10.1); CARBON DIOXIDE 21 mmol/L (21-32); CHLORIDE 101 mmol/L (98-107); CREATININE 1.1 mg/dL (0.6-1.3); GLUCOSE 185 mg/dL (74-106); POTASSIUM 4.4 mmol/L (3.5-5.1); SODIUM SERUM 136 mmol/L (136-145); UREA NITROGEN, BLOOD 21 mg/dL (7-18)
[2023-02-23 17:23] LABS: ALANINE AMINOTRANSFERASE 35 U/L (12-78); ALKALINE PHOSPHATASE 54 U/L (46-116); ASPARTATE AMINOTRANSFERASE 14 U/L (15-37); BILIRUBIN,DIRECT 0.1 mg/dL (0.0-0.2); BILIRUBIN,TOTAL 0.2 mg/dL (0.2-1.0); LIPASE 1055 U/L (73-393); TOTAL PROTEIN, SERUM 7.6 g/dL (6.4-8.2)
[2023-02-23 17:27] LABS: BILIRUBIN,URINE NEGATIVE (NEGATIVE); COLOR,URINE YELLOW (YELLOW); LEUKOCYTE ESTERASE ,URINE NEGATIVE (NEGATIVE); NITRITE, URINE NEGATIVE (NEGATIVE); PROTEIN,URINE NEGATIVE (NEGATIVE); UGLUCOSE 3+ mg/dL (NEGATIVE); UROBILINOGEN,URINE 0.2 EU/dL (0.2)
[2023-02-23 17:36] LABS: BACTERIA,URINE None seen /HPF (None Seen); RBC,URINE 0-2 /HPF (0-2); SQUAMOUS EPITHELIAL CELL,UR 0-2 /HPF (None Seen); WBC,URINE 0-2 /HPF (0-3)
[2023-02-23] MEDS ORDERED: MORPHINE SULFATE INJ 4 MG/ML DISP.SYRIN ONE (17:58)
[2023-02-23] MEDS ORDERED: MORPHINE SULFATE INJ 2 MG/ML DISP.SYRIN IV ONE (18:00)
[2023-02-23] MEDS ORDERED: IV NS 0.9% 1,000 ML BAG IV ONE (18:00)
[2023-02-23] MEDS ORDERED: ONDA4TAB11 PO (20:32)
[2023-02-23] MEDS ORDERED: HYDR-3980 PO (20:32)
--- NOTE | 2023-02-23 20:48 | NUR ---
Patient discharged to home in stable condition. Written and verbal after care instructions given. Patient verbalizes understanding of instruction.IV removed. Catheter intact and site benign. Pressure and 4x4 applied to site. No bleeding noted.
[2023-02-23 20:49] VITALS: BP 121/71
[2023-02-23] MEDS ORDERED: ONDANSETRON HCL/PF - ER 4 MG/2 ML VIAL IV ONE (21:00)
== END 2023-02-23 20:49 | disposition home or self-care (01) ==
LOC: ER 15:38
DX: K85.90 Acute pancreatitis without necrosis or infection, unspecified (principal); R10.13 Epigastric pain; I10 Essential (primary) hypertension; E11.9 Type 2 diabetes mellitus without complications; E78.00 Pure hypercholesterolemia, unspecified; Z79.899 Other long term (current) drug therapy
CPT/HCPCS: 99285; 74176; 96374; 71045; 96361; 96375; 93005; 96376; 85025; 80048; 83690; 80076; 81001; 36415; 84484 ×2; J2270; J2405 ×3; J7030

== ENCOUNTER 2023-05-18 12:30 | Emergency (ER) | payer BC, OTHER ==
[~2023-05-18] VITALS: Ht 160 cm; Wt 70.3 kg
[~2023-05-18 12:30] MED LIST changes: +HYDR-3980 PO; +ONDA4TAB11 PO
[2023-05-18 13:57] LABS: BASOPHILS % (AUTO) 0.5 % (0.0-2.0); EOSINOPHILS # (AUTO) 0.1 K/uL (0.0-0.7); EOSINOPHILS % (AUTO) 1.6 % (0.0-6.0); HEMATOCRIT 45 % (39-51); HEMOGLOBIN 15.1 g/dL (13.5-17.5); LYMPHOCYTES # (AUTO) 1.5 K/uL (0.8-4.8); LYMPHOCYTES % (AUTO) 19.7 % (20.0-44.0); MEAN CORPUSCULAR HEMOGLOBIN 32 PG (26.0-33.0); MEAN CORPUSCULAR HGB CONC 34 g/dl (31.0-36.0); MEAN CORPUSCULAR VOLUME 95 fL (80-96); MONOCYTES # (AUTO) 0.5 K/uL (0.1-1.30); MONOCYTES % (AUTO) 5.9 % (2.0-12.0); NEUTROPHILS # (AUTO) 5.5 K/uL (1.8-8.9); NEUTROPHILS % (AUTO) 72.3 % (43.0-81.0); PLATELET COUNT (AUTO) 229 K/uL (150-450); RED BLOOD CELL COUNT(AUTO) 4.68 MIL/uL (4.5-6.0); RED CELL DISTRIBUTION WIDTH 13.6 % (11.5-15.0); WHITE BLOOD COUNT (AUTO) 7.7 K/uL (4.3-11.0)
[2023-05-18] MEDS ORDERED: MAG HYDROX/AL HYDROX/SIMETH 30 ML UDC ONE (13:59)
[2023-05-18] MEDS ORDERED: LIDOCAINE VISCOUS 2% UD 15 ML UDC ONE (13:59)
[2023-05-18] MEDS ORDERED: ONDANSETRON 4 MG TAB.RAPDIS ONE ×2 (14:00→14:19)
[2023-05-18] MEDS ORDERED: FAMOTIDINE (20 MG) 20 MG TABLET ONE (14:00)
[2023-05-18] MEDS: MAG HYDROX/AL HYDROX/SIMETH 30 ML UDC PO ONE (14:01)
[2023-05-18] MEDS: LIDOCAINE VISCOUS 2% UD 15 ML UDC MM ONE (14:01)
[2023-05-18] MEDS: FAMOTIDINE (20 MG) 20 MG TABLET PO ONE (14:02)
[2023-05-18] MEDS: ONDANSETRON 4 MG TAB.RAPDIS SL ONE (14:02)
[2023-05-18 14:11] LABS: CALCIUM, SERUM 8.8 mg/dL (8.5-10.1); CREATININE 1.1 mg/dL (0.6-1.3); POTASSIUM 4.1 mmol/L (3.5-5.1)
[2023-05-18 14:17] LABS: ALBUMIN 3.9 g/dL (3.4-5.0); BILIRUBIN,DIRECT 0.1 mg/dL (0.0-0.2); BILIRUBIN,TOTAL 0.3 mg/dL (0.2-1.0); TOTAL PROTEIN, SERUM 8.1 g/dL (6.4-8.2)
[2023-05-18] MEDS: IV NS 0.9% 1,000 ML BAG IV ONE (14:17)
[2023-05-18] MEDS ORDERED: ONDA4TAB5 PO (15:07)
[2023-05-18] MEDS ORDERED: FAMO-131 PO (15:07)
[2023-05-18 16:03] VITALS: BP 115/66; TEMP 98; O2SAT 96
== END 2023-05-18 16:04 | disposition admitted as inpatient to this hospital (09) ==
LOC: ER 13:01
DX: K29.20 Alcoholic gastritis without bleeding (principal); F10.10 Alcohol abuse, uncomplicated; I10 Essential (primary) hypertension; E78.5 Hyperlipidemia, unspecified; E11.9 Type 2 diabetes mellitus without complications; Z79.84 Long term (current) use of oral hypoglycemic drugs; Z79.899 Other long term (current) drug therapy; Y90.9 Presence of alcohol in blood, level not specified
CPT/HCPCS: 99285; 96360; 85025; 80048; 83690; 80076; 36415; J7030; Q0162

== ENCOUNTER 2023-07-06 13:20 | Inpatient (IN) | payer BC, OTHER ==
[~2023-07-06] VITALS: Ht 165.1 cm; Wt 72.6 kg
[~2023-07-06 13:20] MED LIST changes: +FAMO-131 PO
[2023-07-06 14:29] LABS: EOSINOPHILS # (AUTO) 0.1 K/uL (0.0-0.7); EOSINOPHILS % (AUTO) 2.7 % (0.0-6.0); HEMATOCRIT 43 % (39-51); HEMOGLOBIN 14.5 g/dL (13.5-17.5); LYMPHOCYTES # (AUTO) 0.9 K/uL (0.8-4.8); LYMPHOCYTES % (AUTO) 20.3 % (20.0-44.0); MEAN CORPUSCULAR HEMOGLOBIN 33 PG (26.0-33.0); MEAN CORPUSCULAR HGB CONC 34 g/dl (31.0-36.0); MEAN CORPUSCULAR VOLUME 96 fL (80-96); MONOCYTES # (AUTO) 0.4 K/uL (0.1-1.30); NEUTROPHILS # (AUTO) 2.9 K/uL (1.8-8.9); PLATELET COUNT (AUTO) 207 K/uL (150-450); RED BLOOD CELL COUNT(AUTO) 4.45 MIL/uL (4.5-6.0); RED CELL DISTRIBUTION WIDTH 13.8 % (11.5-15.0); WHITE BLOOD COUNT (AUTO) 4.4 K/uL (4.3-11.0)
[2023-07-06] MEDS ORDERED: IV NS 0.9% 1,000 ML BAG IV ONE (14:30)
[2023-07-06] MEDS ORDERED: ONDANSETRON HCL/PF 4 MG/2 ML VIAL IVP ONE (14:30)
[2023-07-06] MEDS ORDERED: MORPHINE SULFATE INJ 2 MG/ML DISP.SYRIN IV ONE (14:30)
[2023-07-06 14:39] LABS: ALBUMIN 3.7 g/dL (3.4-5.0); BILIRUBIN,DIRECT 0.1 mg/dL (0.0-0.2); BILIRUBIN,TOTAL 0.4 mg/dL (0.2-1.0); CREATININE 1.1 mg/dL (0.6-1.3); POTASSIUM 4.4 mmol/L (3.5-5.1); TOTAL PROTEIN, SERUM 7.8 g/dL (6.4-8.2)
[2023-07-06] MEDS ORDERED: MORPHINE SULFATE INJ 4 MG/ML DISP.SYRIN ONE (14:40)
[2023-07-06] MEDS ORDERED: ONDANSETRON HCL/PF 4 MG/2 ML VIAL ONE (14:40)
[2023-07-06 15:37] LABS: APPEARANCE,URINE CLEAR (CLEAR); BILIRUBIN,URINE NEGATIVE (NEGATIVE); BLOOD, URINE NEGATIVE Ery/uL (NEGATIVE); COLOR,URINE YELLOW (YELLOW); KETONES,URINE NEGATIVE (NEGATIVE); LEUKOCYTE ESTERASE ,URINE NEGATIVE (NEGATIVE); NITRITE, URINE NEGATIVE (NEGATIVE); PH,URINE 5.5 (5.0-8.0); PROTEIN,URINE NEGATIVE (NEGATIVE); UGLUCOSE 3+ mg/dL (NEGATIVE); UROBILINOGEN,URINE 0.2 EU/dL (0.2)
[2023-07-06 16:39] LABS: RBC,URINE 0-2 /HPF (0-2); WBC,URINE 0-2 /HPF (0-3)
[2023-07-06 16:40] LABS: ADD URINE CULTURE NO; BACTERIA,URINE None seen /HPF (None Seen)
[2023-07-06] MEDS ORDERED: ACETAMINOPHEN 325 MG TABLET PO PRN (22:30)
[2023-07-06] MEDS ORDERED: MAG HYDROX/AL HYDROX/SIMETH 30 ML UDC PO PRN (22:30)
[2023-07-06] MEDS ORDERED: DEXTROSE 50%-WATER 50 ML DISP.SYRIN IV PRN (22:30)
[2023-07-06] MEDS ORDERED: IV D5/0.45 NACL 1,000 ML IV PRN (22:30)
[2023-07-06] MEDS ORDERED: ONDANSETRON HCL/PF 4 MG/2 ML VIAL IVP PRN (22:30)
[2023-07-06] MEDS ORDERED: MORPHINE SULFATE INJ 2 MG/ML DISP.SYRIN IV PRN (22:30)
[2023-07-06] MEDS ORDERED: ZOLPIDEM TARTRATE 5 MG TABLET PO PRN (22:30)
[2023-07-06] MEDS ORDERED: Z GUARD REMEDY 4 OZ OINT TP PRN (22:30)
[2023-07-06] MEDS ORDERED: MAGNESIUM HYDROXIDE 30 ML UDC PO PRN (22:30)
[2023-07-06 23:37] VITALS: BP 163/71; TEMP 97.3; O2SAT 98
[2023-07-07] VITALS: BP 163/71; TEMP 97.3; O2SAT 98
[2023-07-07] MEDS: BLOOD SUGAR DIAGNOSTIC 1 EACH STRIP IN SCH ×4 (06:43→23:21)
[2023-07-07] MEDS: INSULIN REGULAR, HUMAN 100 UNIT/ML 3 ML VIAL SQ PRN ×3 (06:51→23:17)
[2023-07-07 07:43] LABS: BASOPHILS % (AUTO) 0.3 % (0.0-2.0); EOSINOPHILS # (AUTO) 0.2 K/uL (0.0-0.7); EOSINOPHILS % (AUTO) 3.6 % (0.0-6.0); HEMATOCRIT 45 % (39-51); HEMOGLOBIN 14.9 g/dL (13.5-17.5); LYMPHOCYTES # (AUTO) 1.2 K/uL (0.8-4.8); LYMPHOCYTES % (AUTO) 28.2 % (20.0-44.0); MEAN CORPUSCULAR HEMOGLOBIN 32 PG (26.0-33.0); MEAN CORPUSCULAR HGB CONC 33 g/dl (31.0-36.0); MEAN CORPUSCULAR VOLUME 96 fL (80-96); MONOCYTES # (AUTO) 0.5 K/uL (0.1-1.30); MONOCYTES % (AUTO) 11.6 % (2.0-12.0); NEUTROPHILS # (AUTO) 2.5 K/uL (1.8-8.9); NEUTROPHILS % (AUTO) 56.3 % (43.0-81.0); PLATELET COUNT (AUTO) 227 K/uL (150-450); RED BLOOD CELL COUNT(AUTO) 4.65 MIL/uL (4.5-6.0); RED CELL DISTRIBUTION WIDTH 13.8 % (11.5-15.0); WHITE BLOOD COUNT (AUTO) 4.4 K/uL (4.3-11.0)
[2023-07-07 07:58] LABS: CALCIUM, SERUM 8.5 mg/dL (8.5-10.1); CREATININE 0.9 mg/dL (0.6-1.3); MAGNESIUM 1.8 mg/dL (1.8-2.4); POTASSIUM 4.5 mmol/L (3.5-5.1)
[2023-07-07 08:00] VITALS: BP 154/83; TEMP 98.1; O2SAT 98
[2023-07-07] MEDS ORDERED: AMLO-213 PO (08:24)
[2023-07-07] MEDS ORDERED: TAMS-12 PO (08:24)
[2023-07-07] MEDS ORDERED: MECL-159 PO (08:24)
[2023-07-07] MEDS ORDERED: METF-441 PO (08:24)
[2023-07-07] MEDS ORDERED: DAPA10TA PO (08:26)
[2023-07-07] MEDS ORDERED: PANTOPRAZOLE 40 MG VIAL IV SCH (09:00)
[2023-07-07] MEDS ORDERED: INSULIN REGULAR, HUMAN 100 UNIT/ML 3 ML VIAL SQ PRN (13:00)
[2023-07-07] MEDS ORDERED: DEXTROSE 50%-WATER 50 ML DISP.SYRIN IV PRN (13:00)
[2023-07-07] MEDS ORDERED: MECLIZINE HCL 25 MG TABLET PO PRN (13:00)
[2023-07-07] MEDS ORDERED: PIPERACILLIN /TAZOBACTAM 3.375 G in IV D5W 50 ML IV SCH (13:00)
[2023-07-07] MEDS ORDERED: IV NS 0.9% 1,000 ML BAG IV PRN (13:00)
[2023-07-07] MEDS: PIPERACILLIN /TAZOBACTAM 3.375 G in IV D5W 100 ML IV SCH ×2 (14:08→21:13)
[2023-07-07] MEDS: IV NS 0.9% 1,000 ML IV PRN (14:08)
[2023-07-07 16:00] VITALS: BP 162/82; TEMP 98.6; O2SAT 99
[2023-07-07] MEDS: METOPROLOL TARTRATE 50 MG TABLET PO SCH (16:39)
[2023-07-07] MEDS ORDERED: BLOOD SUGAR DIAGNOSTIC 1 EACH STRIP IN SCH (17:30)
[2023-07-07 20:00] VITALS: BP 121/70; TEMP 97.7; O2SAT 96
[2023-07-07] MEDS: ATORVASTATIN 10 MG TABLET PO SCH (23:28)
[2023-07-08] MEDS: PIPERACILLIN /TAZOBACTAM 3.375 G in IV D5W 100 ML IV SCH ×3 (05:04→21:02)
[2023-07-08] MEDS: BLOOD SUGAR DIAGNOSTIC 1 EACH STRIP IN SCH ×4 (06:30→22:39)
[2023-07-08] MEDS: INSULIN REGULAR, HUMAN 100 UNIT/ML 3 ML VIAL SQ PRN ×3 (06:33→16:42)
[2023-07-08] MEDS: PANTOPRAZOLE 40 MG TABLET.DR PO SCH (08:59)
[2023-07-08] MEDS: TAMSULOSIN 0.4 MG CAP.SR.24H PO SCH (08:59)
[2023-07-08] MEDS: METOPROLOL TARTRATE 50 MG TABLET PO SCH ×2 (09:00→17:07)
[2023-07-08] MEDS: AMLODIPINE BESYLATE 10 MG TABLET PO SCH (09:00)
[2023-07-08 09:05] LABS: BASOPHILS % (AUTO) 0.2 % (0.0-2.0); EOSINOPHILS # (AUTO) 0.2 K/uL (0.0-0.7); EOSINOPHILS % (AUTO) 2.6 % (0.0-6.0); HEMATOCRIT 52 % (39-51); HEMOGLOBIN 17.6 g/dL (13.5-17.5); LYMPHOCYTES # (AUTO) 1.3 K/uL (0.8-4.8); LYMPHOCYTES % (AUTO) 22.3 % (20.0-44.0); MEAN CORPUSCULAR HEMOGLOBIN 33 PG (26.0-33.0); MEAN CORPUSCULAR HGB CONC 34 g/dl (31.0-36.0); MEAN CORPUSCULAR VOLUME 97 fL (80-96); MONOCYTES # (AUTO) 0.4 K/uL (0.1-1.30); MONOCYTES % (AUTO) 7.3 % (2.0-12.0); NEUTROPHILS % (AUTO) 67.6 % (43.0-81.0); PLATELET COUNT (AUTO) 134 K/uL (150-450); RED BLOOD CELL COUNT(AUTO) 5.36 MIL/uL (4.5-6.0); RED CELL DISTRIBUTION WIDTH 13.8 % (11.5-15.0); WHITE BLOOD COUNT (AUTO) 5.9 K/uL (4.3-11.0)
[2023-07-08 09:29] LABS: CALCIUM, SERUM 8.8 mg/dL (8.5-10.1); POTASSIUM 4.5 mmol/L (3.5-5.1)
[2023-07-08] MEDS: ACIDOPHILUS/BULGARICUS 1 EACH TAB.CHEW PO SCH (17:07)
[2023-07-08 20:30] VITALS: BP 134/75; TEMP 98.6; O2SAT 96
[2023-07-08] MEDS ORDERED: INSULIN GLARGINE, 100 UNIT/ML CARTRIDGE SQ SCH (22:00)
[2023-07-08] MEDS: ATORVASTATIN 10 MG TABLET PO SCH (22:45)
[2023-07-09] MEDS: IV NS 0.9% 1,000 ML IV PRN (02:45)
[2023-07-09] MEDS: PIPERACILLIN /TAZOBACTAM 3.375 G in IV D5W 100 ML IV SCH ×2 (04:04→12:13)
[2023-07-09] MEDS: BLOOD SUGAR DIAGNOSTIC 1 EACH STRIP IN SCH ×3 (06:20→16:49)
[2023-07-09] MEDS: INSULIN REGULAR, HUMAN 100 UNIT/ML 3 ML VIAL SQ PRN ×3 (06:23→16:49)
[2023-07-09 07:13] LABS: BASOPHILS % (AUTO) 0.4 % (0.0-2.0); EOSINOPHILS # (AUTO) 0.2 K/uL (0.0-0.7); EOSINOPHILS % (AUTO) 3.1 % (0.0-6.0); HEMATOCRIT 44 % (39-51); HEMOGLOBIN 14.9 g/dL (13.5-17.5); LYMPHOCYTES # (AUTO) 1.7 K/uL (0.8-4.8); LYMPHOCYTES % (AUTO) 32.6 % (20.0-44.0); MEAN CORPUSCULAR HEMOGLOBIN 32 PG (26.0-33.0); MEAN CORPUSCULAR HGB CONC 34 g/dl (31.0-36.0); MEAN CORPUSCULAR VOLUME 96 fL (80-96); MONOCYTES # (AUTO) 0.5 K/uL (0.1-1.30); MONOCYTES % (AUTO) 9.9 % (2.0-12.0); NEUTROPHILS # (AUTO) 2.9 K/uL (1.8-8.9); PLATELET COUNT (AUTO) 243 K/uL (150-450); RED CELL DISTRIBUTION WIDTH 13.6 % (11.5-15.0); WHITE BLOOD COUNT (AUTO) 5.3 K/uL (4.3-11.0)
[2023-07-09 07:30] LABS: CALCIUM, SERUM 8.9 mg/dL (8.5-10.1)
[2023-07-09 08:00] VITALS: BP 153/86; TEMP 98.6; O2SAT 99
[2023-07-09] MEDS: ACIDOPHILUS/BULGARICUS 1 EACH TAB.CHEW PO SCH ×2 (08:20→16:20)
[2023-07-09] MEDS: TAMSULOSIN 0.4 MG CAP.SR.24H PO SCH (08:20)
[2023-07-09] MEDS: PANTOPRAZOLE 40 MG TABLET.DR PO SCH (08:20)
[2023-07-09] MEDS: METOPROLOL TARTRATE 50 MG TABLET PO SCH ×2 (08:20→16:20)
[2023-07-09] MEDS: AMLODIPINE BESYLATE 10 MG TABLET PO SCH (08:21)
[2023-07-09] MEDS ORDERED: AMOX-430 PO (08:46)
[2023-07-09] MEDS ORDERED: ACID1TAB12 PO (08:46)
[2023-07-09 16:00] VITALS: BP 155/88; TEMP 98.4; O2SAT 96
[2023-07-09 16:20] VITALS: BP 155/88
== END 2023-07-09 18:19 | disposition home or self-care (01) | DRG 388 ==
LOC: ER 13:20 → MED 21:08
PROVIDERS: ADMIT Nurse Practitioner Acute Care; ATTEND Nurse Practitioner Acute Care
DX: K56.600 Partial intestinal obstruction, unspecified as to cause (principal); K85.90 Acute pancreatitis without necrosis or infection, unspecified; E87.1 Hypo-osmolality and hyponatremia; Z20.822 Contact with and (suspected) exposure to COVID-19; I12.9 Hypertensive chronic kidney disease with stage 1 through stage 4 chronic kidney disease, or unspecified chronic kidney disease; E11.65 Type 2 diabetes mellitus with hyperglycemia; N18.9 Chronic kidney disease, unspecified; E78.5 Hyperlipidemia, unspecified; E11.22 Type 2 diabetes mellitus with diabetic chronic kidney disease; E78.00 Pure hypercholesterolemia, unspecified; K29.70 Gastritis, unspecified, without bleeding; Z79.84 Long term (current) use of oral hypoglycemic drugs; Z79.899 Other long term (current) drug therapy; E86.0 Dehydration; R79.89 Other specified abnormal findings of blood chemistry; N40.0 Benign prostatic hyperplasia without lower urinary tract symptoms; N30.90 Cystitis, unspecified without hematuria; Z82.49 Family history of ischemic heart disease and other diseases of the circulatory system; Z83.3 Family history of diabetes mellitus; F17.200 Nicotine dependence, unspecified, uncomplicated; D64.9 Anemia, unspecified; F41.9 Anxiety disorder, unspecified; E86.1 Hypovolemia; K56.7 Ileus, unspecified; K52.9 Noninfective gastroenteritis and colitis, unspecified
CPT/HCPCS: 36415; 80048-TC; 80061-TC; 80076-TC; 81001; 82010-TC; 82962-TC; 83690-TC; 83735-TC; 84100-TC; 85025-TC; 87086-TC; A4223; C9113; G0378; J1815; J2270; J2405; J2543; J3490; J7030; J7060

== ENCOUNTER 2024-01-09 11:35 | Emergency (ER) | payer BC, MEDICAID ==
[~2024-01-09] VITALS: Ht 165.1 cm; Wt 73.0 kg
[~2024-01-09 11:35] MED LIST changes: +ACID1TAB12 PO; +AMLO-213 PO; +AMOX-430 PO; +DAPA10TA PO; -FAMO-131 PO; -Folic Acid PO; -HYDR-3980 PO; +MECL-159 PO; -METF-440 PO; +METF-441 PO; -Multivit W/Minerals PO; -ONDA4TAB11 PO; -ONDA4TAB5 PO; -OXYC5CAP18 PO; -PANT40TA2 PO; -SUCR1TAB PO; +TAMS-12 PO; -Thiamine HCL PO
[2024-01-09] MEDS ORDERED: ONDANSETRON HCL/PF 4 MG/2 ML VIAL ONE (12:34)
[2024-01-09] MEDS ORDERED: MAG HYDROX/AL HYDROX/SIMETH 30 ML UDC ONE (12:34)
[2024-01-09] MEDS ORDERED: FAMOTIDINE/PF INJ 20 MG/2 ML VIAL IV ONE (12:35)
[2024-01-09] MEDS ORDERED: LIDOCAINE VISCOUS 2% UD 15 ML UDC ONE (12:35)
[2024-01-09 12:50] LABS: BASOPHILS % (AUTO) 0.5 % (0.0-2.0); EOSINOPHILS # (AUTO) 0.1 K/uL (0.0-0.7); EOSINOPHILS % (AUTO) 1.4 % (0.0-6.0); HEMATOCRIT 46 % (39-51); HEMOGLOBIN 15.6 g/dL (13.5-17.5); LYMPHOCYTES # (AUTO) 1.6 K/uL (0.8-4.8); LYMPHOCYTES % (AUTO) 24.9 % (20.0-44.0); MEAN CORPUSCULAR HEMOGLOBIN 33 PG (26.0-33.0); MEAN CORPUSCULAR HGB CONC 34 g/dl (31.0-36.0); MEAN CORPUSCULAR VOLUME 96 fL (80-96); MONOCYTES # (AUTO) 0.5 K/uL (0.1-1.30); NEUTROPHILS # (AUTO) 4.2 K/uL (1.8-8.9); NEUTROPHILS % (AUTO) 65.2 % (43.0-81.0); PLATELET COUNT (AUTO) 270 K/uL (150-450); RED CELL DISTRIBUTION WIDTH 13.5 % (11.5-15.0); WHITE BLOOD COUNT (AUTO) 6.4 K/uL (4.3-11.0)
[2024-01-09] MEDS: MAG HYDROX/AL HYDROX/SIMETH 30 ML UDC PO ONE (12:51)
[2024-01-09] MEDS: LIDOCAINE VISCOUS 2% UD 15 ML UDC MM ONE (12:51)
[2024-01-09] MEDS: FAMOTIDINE/PF INJ 20 MG/2 ML VIAL IV ONE (12:51)
[2024-01-09] MEDS: ONDANSETRON HCL/PF 4 MG/2 ML VIAL IVP ONE (12:51)
[2024-01-09] MEDS: IV NS 0.9% 1,000 ML BAG IV ONE (12:51)
[2024-01-09 13:15] LABS: ALBUMIN 3.9 g/dL (3.4-5.0); BILIRUBIN,DIRECT 0.1 mg/dL (0.0-0.2); BILIRUBIN,TOTAL 0.4 mg/dL (0.2-1.0); CALCIUM, SERUM 8.9 mg/dL (8.5-10.1); POTASSIUM 3.8 mmol/L (3.5-5.1); TOTAL PROTEIN, SERUM 8.1 g/dL (6.4-8.2)
[2024-01-09] MEDS ORDERED: FAMO-131 PO (14:09)
[2024-01-09] MEDS ORDERED: ONDA4TAB5 PO (14:09)
[2024-01-09 14:11] VITALS: BP 130/71; TEMP 98.4; O2SAT 100
== END 2024-01-09 14:11 | disposition home or self-care (01) ==
LOC: ER 11:43
DX: K29.20 Alcoholic gastritis without bleeding (principal); F10.229 Alcohol dependence with intoxication, unspecified; R10.13 Epigastric pain; R11.2 Nausea with vomiting, unspecified; I10 Essential (primary) hypertension; E78.5 Hyperlipidemia, unspecified; E11.9 Type 2 diabetes mellitus without complications; Z79.84 Long term (current) use of oral hypoglycemic drugs; Z79.899 Other long term (current) drug therapy; Y90.5 Blood alcohol level of 100-119 mg/100 ml
CPT/HCPCS: 99285; 96374; 96361; 96375; 93005; 71045; 85025; 80048; 83690; 80076; 36415; 82962; 80320; J3490; J2405; J7030; G0480

== ENCOUNTER 2024-02-12 12:06 | Inpatient (IN) | payer BC, MEDICAID ==
[~2024-02-12] VITALS: Ht 165.1 cm; Wt 73.0 kg
[~2024-02-12 12:06] MED LIST changes: +FAMO-131 PO; +ONDA4TAB5 PO
[2024-02-12] MEDS ORDERED: ONDANSETRON HCL/PF 4 MG/2 ML VIAL ONE (12:38)
[2024-02-12] MEDS ORDERED: FAMOTIDINE/PF INJ 20 MG/2 ML VIAL IV ONE (12:38)
[2024-02-12] MEDS: FAMOTIDINE/PF INJ 20 MG/2 ML VIAL IV ONE (12:45)
[2024-02-12] MEDS: IV NS 0.9% 1,000 ML BAG IV ONE (12:45)
[2024-02-12] MEDS: ONDANSETRON HCL/PF 4 MG/2 ML VIAL IVP ONE (12:45)
[2024-02-12 12:50] LABS: BASOPHILS % (AUTO) 0.3 % (0.0-2.0); EOSINOPHILS # (AUTO) 0.1 K/uL (0.0-0.7); EOSINOPHILS % (AUTO) 0.9 % (0.0-6.0); HEMATOCRIT 44 % (39-51); HEMOGLOBIN 14.7 g/dL (13.5-17.5); LYMPHOCYTES # (AUTO) 1.1 K/uL (0.8-4.8); MEAN CORPUSCULAR HEMOGLOBIN 33 PG (26.0-33.0); MEAN CORPUSCULAR HGB CONC 34 g/dl (31.0-36.0); MEAN CORPUSCULAR VOLUME 97 fL (80-96); MONOCYTES # (AUTO) 0.4 K/uL (0.1-1.30); MONOCYTES % (AUTO) 6.8 % (2.0-12.0); NEUTROPHILS # (AUTO) 4.9 K/uL (1.8-8.9); PLATELET COUNT (AUTO) 211 K/uL (150-450); RED BLOOD CELL COUNT(AUTO) 4.51 MIL/uL (4.5-6.0); WHITE BLOOD COUNT (AUTO) 6.6 K/uL (4.3-11.0)
[2024-02-12 12:58] LABS: CALCIUM, SERUM 8.3 mg/dL (8.5-10.1); CARBON DIOXIDE 21 mmol/L (21-32); CHLORIDE 99 mmol/L (98-107); CREATININE 1.1 mg/dL (0.6-1.3); GLUCOSE 193 mg/dL (74-106); POTASSIUM 4.1 mmol/L (3.5-5.1); SODIUM SERUM 135 mmol/L (136-145); UREA NITROGEN, BLOOD 15 mg/dL (7-18)
[2024-02-12 13:04] LABS: ALANINE AMINOTRANSFERASE 35 U/L (12-78); ALBUMIN 3.7 g/dL (3.4-5.0); ALKALINE PHOSPHATASE 52 U/L (46-116); ASPARTATE AMINOTRANSFERASE 14 U/L (15-37); BILIRUBIN,DIRECT 0.1 mg/dL (0.0-0.2); BILIRUBIN,TOTAL 0.3 mg/dL (0.2-1.0); TOTAL PROTEIN, SERUM 7.4 g/dL (6.4-8.2)
[2024-02-12 13:14] LABS: LIPASE 521 U/L (16-77)
[2024-02-12] MEDS ORDERED: SUCR1TAB PO (13:40)
[2024-02-12 17:01] VITALS: BP 166/81; TEMP 98.7; O2SAT 97
[2024-02-12] MEDS: ONDANSETRON HCL/PF 4 MG/2 ML VIAL IV PRN (17:47)
[2024-02-12] MEDS ORDERED: Z GUARD REMEDY 4 OZ OINT TP PRN (18:00)
[2024-02-12] MEDS ORDERED: ONDANSETRON HCL/PF 4 MG/2 ML VIAL IVP PRN (18:00)
[2024-02-12] MEDS: BLOOD SUGAR DIAGNOSTIC 1 EACH STRIP IN SCH (18:00)
[2024-02-12] MEDS ORDERED: MORPHINE SULFATE INJ 4 MG/ML DISP.SYRIN IV PRN (18:00)
[2024-02-12] MEDS ORDERED: DEXTROSE 50%-WATER 50 ML DISP.SYRIN IV PRN (18:00)
[2024-02-12] MEDS ORDERED: MECLIZINE HCL 25 MG TABLET PO PRN (18:00)
[2024-02-12] MEDS ORDERED: LORAZEPAM INJ 2 MG/ML VIAL IV PRN (18:00)
[2024-02-12] MEDS: ENOXAPARIN SODIUM 40 MG/0.4 ML DISP.SYRIN SQ SCH (18:33)
[2024-02-12] MEDS: PANTOPRAZOLE 40 MG TABLET.DR PO SCH (18:33)
[2024-02-12] MEDS: ACETAMINOPHEN 325 MG TABLET PO PRN (18:34)
[2024-02-12 20:00] VITALS: BP 155/67; TEMP 98; O2SAT 99
[2024-02-12] MEDS: ATORVASTATIN 10 MG TABLET PO SCH (21:05)
[2024-02-12] MEDS: SUCRALFATE 1 G TABLET PO SCH (21:05)
[2024-02-12] MEDS: INSULIN REGULAR, HUMAN 100 UNIT/ML 3 ML VIAL SQ PRN (21:18)
[2024-02-13 04:00] VITALS: BP 160/82; TEMP 98; O2SAT 98
[2024-02-13 06:51] LABS: BASOPHILS % (AUTO) 0.3 % (0.0-2.0); EOSINOPHILS # (AUTO) 0.1 K/uL (0.0-0.7); EOSINOPHILS % (AUTO) 1.3 % (0.0-6.0); HEMATOCRIT 45 % (39-51); HEMOGLOBIN 15.5 g/dL (13.5-17.5); LYMPHOCYTES # (AUTO) 1.1 K/uL (0.8-4.8); MEAN CORPUSCULAR HEMOGLOBIN 34 PG (26.0-33.0); MEAN CORPUSCULAR HGB CONC 35 g/dl (31.0-36.0); MEAN CORPUSCULAR VOLUME 97 fL (80-96); MONOCYTES # (AUTO) 0.5 K/uL (0.1-1.30); MONOCYTES % (AUTO) 9.4 % (2.0-12.0); NEUTROPHILS # (AUTO) 3.2 K/uL (1.8-8.9); PLATELET COUNT (AUTO) 197 K/uL (150-450); RED CELL DISTRIBUTION WIDTH 13.9 % (11.5-15.0); WHITE BLOOD COUNT (AUTO) 4.9 K/uL (4.3-11.0)
[2024-02-13 07:36] LABS: THYROID STIMULATING HORMONE 2.972 uIU/mL (0.358-3.74)
[2024-02-13 07:58] LABS: ALBUMIN 3.5 g/dL (3.4-5.0); BILIRUBIN,TOTAL 0.6 mg/dL (0.2-1.0); CALCIUM, SERUM 8.9 mg/dL (8.5-10.1); CREATININE 1.1 mg/dL (0.6-1.3); MAGNESIUM 1.9 mg/dL (1.8-2.4); PHOSPHORUS 3.7 mg/dL (2.5-4.9); POTASSIUM 4.1 mmol/L (3.5-5.1); TOTAL PROTEIN, SERUM 7.6 g/dL (6.4-8.2)
[2024-02-13] MEDS: BENAZEPRIL HCL 10 MG TABLET PO SCH (08:42)
[2024-02-13] MEDS: AMLODIPINE BESYLATE 10 MG TABLET PO SCH (08:42)
[2024-02-13 08:43] VITALS: BP 173/87
[2024-02-13] MEDS: glipiZIDE 5 MG TABLET PO SCH (08:43)
[2024-02-13] MEDS: METOPROLOL TARTRATE 50 MG TABLET PO SCH (08:43)
== END 2024-02-13 10:39 | disposition left against medical advice (07) | DRG 440 ==
LOC: ER 12:08 → MEDSG1 16:47
PROVIDERS: ADMIT Nurse Practitioner Acute Care; ATTEND Nurse Practitioner Acute Care
DX: K85.20 Alcohol induced acute pancreatitis without necrosis or infection (principal); I12.9 Hypertensive chronic kidney disease with stage 1 through stage 4 chronic kidney disease, or unspecified chronic kidney disease; K29.70 Gastritis, unspecified, without bleeding; N18.9 Chronic kidney disease, unspecified; E11.22 Type 2 diabetes mellitus with diabetic chronic kidney disease; D63.1 Anemia in chronic kidney disease; N40.0 Benign prostatic hyperplasia without lower urinary tract symptoms; F10.10 Alcohol abuse, uncomplicated; Y90.9 Presence of alcohol in blood, level not specified; E78.5 Hyperlipidemia, unspecified; E78.00 Pure hypercholesterolemia, unspecified; Z82.49 Family history of ischemic heart disease and other diseases of the circulatory system; Z83.3 Family history of diabetes mellitus; Z79.84 Long term (current) use of oral hypoglycemic drugs; F17.200 Nicotine dependence, unspecified, uncomplicated; Z79.899 Other long term (current) drug therapy
CPT/HCPCS: 36415; 80048-TC; 80053-TC; 80061-TC; 80076-TC; 82962-TC; 83540-TC; 83690-TC; 83735-TC; 84100-TC; 84443-TC; 84484-TC; 85025-TC; G0378; J1650; J1815; J2405; J3490; J7030

== ENCOUNTER 2024-05-05 12:44 | Emergency (ER) | payer BC ==
[~2024-05-05] VITALS: Ht 157.5 cm; Wt 77.1 kg
[~2024-05-05 12:44] MED LIST changes: -ACID1TAB12 PO; -AMOX-430 PO; -FAMO-131 PO; +OMEP40CA21 PO; +SUCR1TAB PO; -TAMS-12 PO
[2024-05-05 12:45] VITALS: TEMP 98
[2024-05-05 14:32] LABS: BASOPHILS % (AUTO) 0.4 % (0.0-2.0); EOSINOPHILS # (AUTO) 0.1 K/uL (0.0-0.7); EOSINOPHILS % (AUTO) 0.9 % (0.0-6.0); HEMATOCRIT 43 % (39-51); HEMOGLOBIN 15.2 g/dL (13.5-17.5); LYMPHOCYTES # (AUTO) 1.2 K/uL (0.8-4.8); LYMPHOCYTES % (AUTO) 18.1 % (20.0-44.0); MEAN CORPUSCULAR HEMOGLOBIN 34 PG (26.0-33.0); MEAN CORPUSCULAR HGB CONC 35 g/dl (31.0-36.0); MEAN CORPUSCULAR VOLUME 98 fL (80-96); MONOCYTES # (AUTO) 0.5 K/uL (0.1-1.30); MONOCYTES % (AUTO) 7.6 % (2.0-12.0); NEUTROPHILS # (AUTO) 4.9 K/uL (1.8-8.9); PLATELET COUNT (AUTO) 238 K/uL (150-450); RED BLOOD CELL COUNT(AUTO) 4.41 MIL/uL (4.5-6.0); RED CELL DISTRIBUTION WIDTH 13.8 % (11.5-15.0); WHITE BLOOD COUNT (AUTO) 6.8 K/uL (4.3-11.0)
[2024-05-05 14:44] LABS: CALCIUM, SERUM 9.4 mg/dL (8.5-10.1); CREATININE 1.1 mg/dL (0.6-1.3); POTASSIUM 4.1 mmol/L (3.5-5.1)
[2024-05-05 14:49] LABS: ALBUMIN 3.6 g/dL (3.4-5.0); BILIRUBIN,DIRECT 0.1 mg/dL (0.0-0.2); BILIRUBIN,TOTAL 0.5 mg/dL (0.2-1.0); TOTAL PROTEIN, SERUM 7.8 g/dL (6.4-8.2)
[2024-05-05] MEDS: IV NS 0.9% 1,000 ML BAG IV ONE (14:54)
[2024-05-05] MEDS: ONDANSETRON HCL/PF 4 MG/2 ML VIAL IVP ONE (14:54)
[2024-05-05] MEDS: FAMOTIDINE/PF INJ 20 MG/2 ML VIAL IV ONE (14:54)
[2024-05-05] MEDS: MAG HYDROX/AL HYDROX/SIMETH 30 ML UDC PO ONE (14:55)
[2024-05-05] MEDS: ACETAMINOPHEN ES 500 MG TABLET PO ONE (14:55)
[2024-05-05] MEDS ORDERED: MAG HYDROX/AL HYDROX/SIMETH 30 ML UDC ONE (15:16)
[2024-05-05] MEDS ORDERED: ONDANSETRON HCL/PF 4 MG/2 ML VIAL ONE (15:16)
[2024-05-05] MEDS ORDERED: ACETAMINOPHEN ES 500 MG TABLET ONE (15:17)
[2024-05-05] MEDS ORDERED: FAMOTIDINE/PF INJ 20 MG/2 ML VIAL IV ONE (15:17)
[2024-05-05] MEDS ORDERED: MAG355OR18 PO (16:03)
[2024-05-05 16:10] VITALS: BP 136/78; O2SAT 100
== END 2024-05-05 16:15 | disposition home or self-care (01) ==
LOC: ER 13:16
DX: K29.20 Alcoholic gastritis without bleeding (principal); I10 Essential (primary) hypertension; E78.00 Pure hypercholesterolemia, unspecified; E11.9 Type 2 diabetes mellitus without complications; Z79.84 Long term (current) use of oral hypoglycemic drugs; Z79.899 Other long term (current) drug therapy
CPT/HCPCS: 99284; 96374; 96361; 96375; 85025; 80048; 83690; 80076; 36415; J3490; J2405; J7030

== ENCOUNTER 2024-06-02 11:33 | Emergency (ER) | payer BC ==
[~2024-06-02] VITALS: Ht 167.6 cm; Wt 81.6 kg
[~2024-06-02 11:33] MED LIST changes: +MAG355OR18 PO
[2024-06-02 11:49] VITALS: TEMP 98.3
[2024-06-02] MEDS ORDERED: ONDANSETRON HCL/PF 4 MG/2 ML VIAL ONE (12:04)
[2024-06-02] MEDS: IV NS 0.9% 500 ML BAG IV ONE (12:20)
[2024-06-02] MEDS: ONDANSETRON HCL/PF 4 MG/2 ML VIAL IVP ONE (12:22)
[2024-06-02 12:43] LABS: BASOPHILS % (AUTO) 0.5 % (0.0-2.0); EOSINOPHILS % (AUTO) 0.4 % (0.0-6.0); HEMATOCRIT 41 % (39-51); LYMPHOCYTES # (AUTO) 1.2 K/uL (0.8-4.8); LYMPHOCYTES % (AUTO) 20.8 % (20.0-44.0); MEAN CORPUSCULAR HEMOGLOBIN 34 PG (26.0-33.0); MEAN CORPUSCULAR HGB CONC 34 g/dl (31.0-36.0); MEAN CORPUSCULAR VOLUME 100 fL (80-96); MONOCYTES # (AUTO) 0.4 K/uL (0.1-1.30); MONOCYTES % (AUTO) 7.2 % (2.0-12.0); NEUTROPHILS # (AUTO) 4.2 K/uL (1.8-8.9); NEUTROPHILS % (AUTO) 71.1 % (43.0-81.0); PLATELET COUNT (AUTO) 261 K/uL (150-450); RED BLOOD CELL COUNT(AUTO) 4.09 MIL/uL (4.5-6.0); RED CELL DISTRIBUTION WIDTH 12.9 % (11.5-15.0); WHITE BLOOD COUNT (AUTO) 5.9 K/uL (4.3-11.0)
[2024-06-02 12:45] LABS: CALCIUM, SERUM 8.3 mg/dL (8.5-10.1); CREATININE 1.6 mg/dL (0.6-1.3); POTASSIUM 4.6 mmol/L (3.5-5.1)
[2024-06-02 12:51] LABS: ALBUMIN 3.4 g/dL (3.4-5.0); BILIRUBIN,DIRECT 0.1 mg/dL (0.0-0.2); BILIRUBIN,TOTAL 0.4 mg/dL (0.2-1.0)
[2024-06-02] MEDS ORDERED: CHLO25CA22 PO (13:19)
[2024-06-02] MEDS ORDERED: PANT40TA2 PO (13:19)
[2024-06-02 13:29] VITALS: BP 110/65; O2SAT 98
== END 2024-06-02 13:30 | disposition home or self-care (01) ==
LOC: ER 11:33
DX: F10.10 Alcohol abuse, uncomplicated (principal); I10 Essential (primary) hypertension; E78.00 Pure hypercholesterolemia, unspecified; E11.9 Type 2 diabetes mellitus without complications
CPT/HCPCS: 99283; 96374; 85025; 80048; 83690; 80076; 36415; J2405; J7030; J7040